=== PATIENT | male | born 1970 | race Caucasian/White ===

== ENCOUNTER → 2017-07-20 | Outpatient (CLI) | payer OTHER ==
[2017-07-20 12:59] LABS: CHOLESTEROL/HDL RATIO 3.8
== END | disposition home or self-care (01) ==
LOC: C.LABBFT 10:35
PROVIDERS: ATTEND Physician Assistant Medical
DX: Z00.00 Encounter for general adult medical examination without abnormal findings (principal)

== ENCOUNTER → 2017-07-22 | Outpatient (CLI) | payer OTHER ==
[2017-07-23 06:06] LABS: ESTIMATED AVERAGE GLUCOSE 108 mg/dl; HA1C FLAG Normal (Normal)
== END | disposition home or self-care (01) ==
LOC: C.LABBFT 11:18
PROVIDERS: ATTEND Physician Assistant Medical
DX: R73.09 Other abnormal glucose (principal)

== ENCOUNTER → 2017-10-19 | Day surgery (SDC) | payer OTHER ==
[2017-10-05 15:32] VITALS: Ht 175.3 cm; Wt 118.2 kg
[~2017-10-19] VITALS: Ht 175.3 cm; Wt 118.2 kg
[~2017-10-19] MED LIST: ATROPINE SULFATE 0.1 MG/ML 5ML SYR IV PRN; EpHEDrine SULFATE INJ 50 MG/ML AMP IV PRN; LIDOCAINE HCL 2% 2 ML VIAL (20MG/ML) ONE; MIDAZOLAM HCL 1 MG/ML 2ML VIAL ONE; PROPOFOL IV EMULSION 10 MG/ML 20 ML VIAL IV ONE; SODIUM CHLORIDE 0.9% 500ML 500 ML IV ONE
--- NOTE | 2017-10-19 10:57 | Endo History and Physical ---
History & Physical Date of Service: Oct 19, 2017. Chief Complaint: Hx of colon polyps Referring Physician: Dr Nielsen History of Present Illness 47 yo CM who presents for colonoscopy secondary to history of colon polyps. Past Surgical History Hx Cardiac Surgery: No Hx Internal Defibrillator: No Hx Pacemaker: No Hx Abdominal Surgery: Yes (APPY) Hx of Implantable Prosthesis: No Hx Post-Op Nausea and Vomiting: No Hx Cancer Surgery: No Hx Thoracic Surgery: No Hx Orthopedic: No Hx Urinary Tract Surgery: No Family History None Social History Smoking Status: Never Smoker Hx Substance Use: No Hx Alcohol Use: No Allergies Coded Allergies: No Known Allergies (Verified , 10/05/17) Current Medications Reported Home Medications Medications Dose Route/Sig Max Daily Dose Days Date Category No Active Prescriptions or Reported Medications Rx Vital Signs Weight (Kilograms): 118.18 Height (Feet): 5 Height (Inches): 9 Date Time Temp Pulse Resp B/P (MAP) Pulse Ox O2 Delivery O2 Flow Rate FiO2 10/19/17 10:27 36.8 68 20 122/85 (97) 96 Room Air Physical Exam General Appearance: WD/WN, no apparent distress Respiratory/Chest: Auscultation: breath sounds normal Cardiovascular: Heart Auscultation: RRR Abdomen: Bowel Sounds: normal Inspection & Palpation: soft, non-distended, no tenderness, guarding & rebound Assessment and Plan Assessment: 47 yo CM who presents for colonoscopy secondary to history of colon polyps. Plan: Proceed with colonoscopy.
--- NOTE | 2017-10-19 11:25 | GI REPORT ---
Procedure Date: 10/19/2017 11:00 AM Procedure: Colonoscopy Indications: High risk colon cancer surveillance: Personal history of colonic polyps Medicines: Monitored Anesthesia Care Complications: No immediate complications. Estimated Blood Loss: Estimated blood loss: none. Procedure: Pre-Anesthesia Assessment: - Prior to the procedure, a History and Physical was performed, and patient medications and allergies were reviewed. The patient's tolerance of previous anesthesia was also reviewed. The risks and benefits of the procedure and the sedation options and risks were discussed with the patient. All questions were answered, and informed consent was obtained. Prior Anticoagulants: The patient has taken no previous anticoagulant or antiplatelet agents. ASA Grade Assessment: II - A patient with mild systemic disease. After reviewing the risks and benefits, the patient was deemed in satisfactory condition to undergo the procedure. After I obtained informed consent, the scope was passed under direct vision. Throughout the procedure, the patient's blood pressure, pulse, and oxygen saturations were monitored continuously. The scope was introduced through the anus and advanced to the terminal ileum. The colonoscopy was performed without difficulty. The patient tolerated the procedure well. The quality of the bowel preparation was good. The terminal ileum, ileocecal valve, appendiceal orifice, and rectum were photographed. Findings: A 5 mm polyp was found in the ascending colon. The polyp was sessile. The polyp was removed with a hot snare. Resection and retrieval were complete. Non-bleeding internal hemorrhoids were found during retroflexion. The hemorrhoids were small. Impression: - One 5 mm polyp in the ascending colon, removed with a hot snare. Resected and retrieved. - Non-bleeding internal hemorrhoids. Recommendation: - Resume previous diet. - Continue present medications. - Repeat colonoscopy for surveillance based on pathology results. - Return to primary care physician as previously scheduled. Francis Moore DO 10/19/2017 11:24:34 AM This report has been signed electronically. Note Initiated On: 10/19/2017 11:00 AM I attest to the content of the Intraoperative Record and orders documented therein, exceptions below
--- NOTE | 2017-10-19 11:26 | Anesthesiology Progress Note ---
Anesthesia Post Op Note Date & Time Oct 19, 2017 at 11:26 Vital Signs Vital Signs Past 12 Hours Date Time Temp Pulse Resp B/P (MAP) Pulse Ox O2 Delivery O2 Flow Rate FiO2 10/19/17 10:27 36.8 68 20 122/85 (97) 96 Room Air Notes Mental Status: alert / awake / arousable, participated in evaluation Pt Amnestic to Procedure: Yes Nausea / Vomiting: adequately controlled Pain: adequately controlled Airway Patency, RR, SpO2: stable & adequate BP & HR: stable & adequate Hydration State: stable & adequate Anesthetic Complications: no major complications apparent
--- NOTE | 2017-10-19 11:27 | Discharge Instructions ---
Endoscopy Patient Instructions Date / Procedure(s) Performed Oct 19, 2017. Colonoscopy Allergy Information Coded Allergies: No Known Allergies (Verified , 10/05/17) Discharge Date / Findings Oct 19, 2017. Colon polyp Internal hemorrhoids Medication Instructions OK to resume all medications today as prescribed Reported Home Medications Medications Dose Route/Sig Max Daily Dose Days Date Category No Active Prescriptions or Reported Medications Rx Provider Instructions Activity Restrictions - No exercising or heavy lifting for 24 hours. - Do not drink alcohol the day of the procedure. - Do not drive a car or operate machinery until the day after the procedure. - Do not make any important decisions or sign important papers in 24 hours after the procedure. Following Day: - Return to full activity which may include returning to work/school. Diet Start your diet with liquids and light foods (jello, soup, juice, toast). Then eat your usual diet if not nauseated. Treatment For Common After Affects For mild abdominal pain, bloating, or excessive gas: - Rest - Eat lightly - Lie on right side Follow-Up Information Follow-up with Dr Nielsen as scheduled Anesthesia Information What You Should Know You have had a procedure that required some medicine to reduce anxiety and discomfort. This treatment is called moderate sedation. After receiving the treatment, you may be sleepy, but you will be able to breathe on your own. The effects of the treatment may last for several hours. Follow these instructions along with Activity/Diet recommendations noted above: * Do NOT do anything where dizziness or clumsiness would be dangerous. * Rest quietly at home today, then you can be up and about tomorrow. * Have a responsible person stay with you the rest of today. * You may have had an I.V. today. If so, you may take the dressing off later today. Recommendations Call your doctor if: * Trouble breathing * Continuous vomiting for more than 24 hours * Temperature above 101 degrees * Severe abdominal pain or bloating * Pain not relieved by pain medicine ordered * There is increased drainage or redness from any incision * A large amount of rectal bleeding greater than 2-3 tablespoons. (If you had a polyp/s removed or have hemorrhoids, a small amount of blood - from the rectum is to be expected.) * You have any unanswered questions or concerns. IN THE EVENT OF A SERIOUS EMERGENCY, GO TO THE NEAREST EMERGENCY ROOM Your discharge instructions were prepared by provider Francis Moore. Patient Instructions Signature Page Faizan Monroy Patient (or Guardian) Signature/Date: I have read and understand the instructions given to me by my caregivers. Caregiver/RN/Doctor Signature/Date: The above-named patient and/or guardian has received patient instructions on this date. + Original Patient Signature Page (only) stays with chart. Please make copy for patient.
[2017-10-19 11:55] VITALS: BP 124/85; PULSE 60; O2SAT 97
== END | disposition home or self-care (01) ==
LOC: C.GI 09:51
PROVIDERS: ATTEND Internal Medicine
DX: Z12.11 Encounter for screening for malignant neoplasm of colon (principal); D12.2 Benign neoplasm of ascending colon; K64.8 Other hemorrhoids; Z86.010 Personal history of colon polyps

== ENCOUNTER 2020-05-31 05:47 | Observation (INO) ==
[2020-05-31] MEDS ORDERED: SODIUM CHLORIDE 0.9% 1000ML 1,000 ML IV SCH (06:15)
[2020-05-31] MEDS ORDERED: OPTIRAY 320 125ml IV PRN (06:26)
[2020-05-31 06:38] LABS: Partial Thromboplastin Time 26.9 Seconds (21.0-31.0); Prothrombin Time 10.4 Seconds (9.0-12.0)
[2020-05-31 06:46] LABS: Albumin Level 3.6 gm/dl (3.4-5.0); BUN Creatinine Ratio 16.4 (10-20); Calcium 8.5 mg/dl (8.5-10.1); Creatinine Clr Calc Pharmacy 107.7 ml/min; Est GFR (African American) 92.2; Est GFR (Non-African American) 79.5; Potassium 3.6 mmol/L (3.5-5.1)
[2020-05-31 06:51] LABS: Albumin Globulin Ratio 1.1 (0.9-2); Bilirubin,Total 2.3 mg/dl (0.2-1); Globulin 3.3 gm/dl (2.5-4.0); Total Protein 6.9 gm/dl (6.4-8.2); Troponin I 0.33 ng/ml (0-0.045)
--- NOTE | 2020-05-31 06:52 | CT Scan Report ---
CT angio head wo/w, CT angio neck with con HISTORY: 49 years-old Male stroke acute strokelike symptoms COMPARISON: None TECHNIQUE: CTA of the head and neck was obtained both with and without the use of a moderate 18 mL Op tiray 320 IV contrast. 3-D coronal and sagittal MIPS were obtained from the axial data set and were s ubmitted for review. All measurements were obtained according to NASCET criteria. A dose lowering debo hnique was used consistent with the principals of [place]. FINDINGS: CT HEAD: There is a probable arachnoid cyst noted in the superior aspect of the quadrigeminal plate cistern ca uses mild mass effect upon the third ventricle. This measures approximately 3.8 cm in greatest dimens ion. No acute intracranial hemorrhage, midline shift, hydrocephalus or intra-axial mass. Amato-white i nterface is well-maintained. No evidence of acute or subacute territorial infarct. No acute calvarial fracture. Mastoid air cells and middle ear cavities are clear. The paranasal sinuses are also clear. Soft tissues and orbits are unremarkable. CTA HEAD AND NECK: No abnormal intracranial enhancement. Cerebral venous sinuses appear patent. The imaged opacified pul monary artery is unremarkable. Three-vessel morphology of the aortic arch. Patency of the imaged bila teral subclavian arteries and innominate artery. The common carotid arteries are widely patent. Mild mixed plaque of the carotid bulbs without significant stenosis. Mild tortuosity of the cervical segme nts of the internal carotid arteries. Mild calcified plaque of the supraclinoid segments. The middle and anterior cerebral arteries are patent and unremarkable. Mild luminal narrowing involves the dista l A1 segments bilaterally. The A2 segments are patent and unremarkable. The vertebral arteries are co dominant and appear widely patent. No aneurysm, dissection, high-grade stenosis or proximal branch oc clusion. The basilar and posterior cerebral arteries are patent. There is mild multifocal luminal joselin rowing of the bilateral posterior cerebral arteries. Lung apices are clear without pneumothorax. There is a 2.4 x 0.9 cm prominent right peritracheal lymp h node which is nonspecific. Soft tissues are unremarkable. Mild polypoid mucosal thickening of the a nterior wall right maxillary sinus. IMPRESSION: 1. No acute intracranial abnormality. 2. No aneurysm, dissection, high-grade stenosis or proximal branch occlusion. ACT 112: Negative or not required by law. The above report was generated using voice recognition software. It may contain grammatical, syntax o r spelling errors. Electronically signed by: Cody Ackerman M.D. 05/31/2020 6:51 AM
[2020-05-31 07:11] LABS: Hematocrit (blood only) 33.3 % (42-52); Hemoglobin 11.2 g/dL (14.0-18.0); Mean Corpuscular Hgb Conc 33.6 g/dL (32-36); Mean Corpuscular Volume 92.2 fL (80-100); Mean Platelet Volume 8.7 fL (7.4-10.4); Nucleated RBC # (auto) 0.03 K/uL (0-0); Nucleated RBC % (auto) 0.6 %; Platelet Count 15 K/uL (130-400); Platelet Estimate SIGNIFIC DECREASED (Normal); RDW Coefficient of Variation 15.3 % (11.5-14.5); RDW Standard Deviation 49.4 fL (36.4-46.3); Red Blood Count 3.61 M/uL (4.7-6.1); White Blood Count 5.51 K/uL (4.8-10.8)
--- NOTE | 2020-05-31 07:27 | XRay Report ---
XR chest 1V portable CLINICAL HISTORY: cva mental status change COMPARISON STUDY: 04/22/2013 FINDINGS: The bones soft tissues and hemidiaphragms are normal. The cardiomediastinal silhouette is n ormal. The lungs are clear. The pulmonary vasculature is normal. IMPRESSION: Negative chest. ACT 112: Negative or not required by law. The above report was generated using voice recognition software. It may contain grammatical, syntax or spelling errors. Electronically signed by: Chu Cannon M.D. 05/31/2020 7:25 AM
[2020-05-31] MEDS ORDERED: LABETALOL HCL IV 5 MG/ML 20ML IV STA (07:28)
[2020-05-31 07:39] LABS: Eosinophils # (auto) 0.16 K/uL (0-0.5); Eosinophils % (auto) 2.9 %; Immature Granulocytes % (auto) 1.8 %; Lymphocytes # (auto) 1.43 K/uL (1.2-3.4); Monocytes # (auto) 0.46 K/uL (0.11-0.59); Monocytes % (auto) 8.3 %; Neutrophils # (auto) 3.36 K/uL (1.4-6.5)
[2020-05-31 08:09] LABS: Polychromasia 1+; Schistocytes Occasional
--- NOTE | 2020-05-31 08:44 | History & Physical Report ---
Date of Service May 31, 2020 Assessment & Plan (1) Stroke-like symptoms: Faizan Monroy is a 49y/o M w/ PMH significant for sleep apnea; who presented to the ED for concerns of facial weakness and numbness and tingling in right arm. Stroke-like symptoms: -Symptoms resolved during care in ED -CTA head/neck: No acute intracranial abnormality, no aneurysm, no dissection, no high-grade stenosis or proximal branch occlusion, probable arachnoid cyst -MRI brain: No acute intracranial abnormality -Lipid profile in a.m., A1c in a.m. 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 daily for 4 days -Globulins pending -SPEP pending Diet: Heart healthy DVT ppx: held at this time Code: Full code (2) Thrombocytopenia: History of Present Illness Primary Care Provider: Anupam Nielsen MD Faizan Monroy is a 49y/o M w/ PMH reviewed for obstructive sleep apnea; to the emergency department following concern for recurrence of right arm/hand weakness numbness and tingling, with new onset facial numbness tingling and slurring of speech. This resolved prior to mission, and has not recurred. Patient did not receive TPA, following the discovery of low platelets on CBC. Over the last several days patient has noticed bruising of his left ankle, but does not remember any trauma to his left ankle or other injuries. Denies fever, shortness of breath, easy bleeding, chest pain, nausea, vomiting, abdominal pain, changes to urination, changes to bowel movements. Social: Denies tobacco, admits to 1-2 drinks every 2 to 3 months, denies recreational or illicit drug use Family: Denies history of lung cancer, Allergies Allergy/AdvReac Type Severity Reaction Status Date / Time No Known Allergies Allergy Unknown Verified 05/31/20 06:39 Home Medications Home Medications Medication Instructions Recorded Confirmed Type No Known Home Medications 05/31/20 05/31/20 History Past Med/Surg History Social History Preferred Language: Mongolian Communication Ability: Effective Oracle Fusion Consultant Required: No Beliefs That Will Affect Care: None Current Living Situation: Parent and Family Current Living Situation Comment: Parents and sons Other Information That Helps Us Care for You: No Feels Safe at Home: Yes Safety Concerns: Feels Safe At This Time Smoking Status: Never smoker Second Hand Exposure: No ; Hx Alcohol Use: Yes Alcohol type: beer and hard liquor Hx Substance Use: No Review of Systems Review of Systems: All systems reviewed & are unremarkable except as noted in Subjective Physical Exam Constitutional: WD/WN, vitals as above Eyes: PERRL, conjunctivae normal, anicteric sclerae Respiratory: normal respiratory effort, lungs clear to auscultation Cardiovascular: Rate/Rhythm: regular rate and regular rhythm Heart Sounds: normal S1 and normal S2; no gallop, no murmur and no cardiac rub Vessels: no JVD Extremities: no pedal edema Gastrointestinal (Abdomen): normal bowel sounds, soft, nontender, no hepatosplenomegaly Musculoskeletal: no cyanosis or clubbing, extremities motor strength 5/5 Skin: no rashes, warm and dry Neurologic: patellar DTR's 2+ bilat, sensation intact CN's II-XI intact bilaterally Psychiatric: A+Ox3, euthymic affect Results & Data Results & Data ([facility]) Vital Signs (Past 12 Hours) Vital Signs Temp Pulse Pulse Resp BP BP Pulse Ox 05/31/20 08:12 67 18 134/92 96 05/31/20 07:30 66 18 134/93 96 05/31/20 07:07 76 20 177/112 H 99 05/31/20 06:46 70 18 98 05/31/20 06:45 71 19 153/98 H 98 05/31/20 06:40 70 12 155/106 H 97 05/31/20 06:35 73 16 149/106 H 99 05/31/20 06:31 75 14 99 05/31/20 06:30 76 22 150/93 H 99 05/31/20 06:29 70 16 145/99 H 97 05/31/20 06:08 153/107 H 97 05/31/20 05:51 36.7 C 71 18 147/98 H 97 Laboratory Results 05/31/20 05/31/20 05/31/20 Range/Units 12:31 12:31 12:31 WBC (4.8-10.8) K/uL RBC (4.7-6.1) M/uL Hgb (14.0-18.0) g/dL Hct (42-52) % MCV (80-100) fL MCH (25-34) pg MCHC (32-36) g/dL RDW Std Deviation (36.4-46.3) fL RDW Coeff of Sarah (11.5-14.5) % Plt Count (130-400) K/uL MPV (7.4-10.4) fL Immature Gran % (Auto) % Neut % (Auto) % Lymph % (Auto) % Crook % (Auto) % Eos % (Auto) % Baso % (Auto) % Reticulocyte % (Auto) (0.5-2.0) % Neut # (Auto) (1.4-6.5) K/uL Lymph # (Auto) (1.2-3.4) K/uL Crook # (Auto) (0.11-0.59) K/uL Eos # (Auto) (0-0.5) K/uL Baso # (Auto) (0-0.2) K/uL Reticulocyte # (0.02-0.10) 10^6/uL Immature Gran # (Auto) (0.00-0.02) K/uL Absolute Nucleated RBC (0-0) K/uL Nucleated RBC % (auto) % Platelet Estimate (Normal) Polychromasia Schistocytes PT (9.0-12.0) Seconds INR (0.9-1.1) APTT (21.0-31.0) Seconds PTT Ratio Sodium (136-145) mmol/L Potassium (3.5-5.1) mmol/L Chloride (98-107) mmol/L Carbon Dioxide (21-32) mmol/L Anion Gap (3-11) BUN (7-18) mg/dl Creatinine (0.6-1.4) mg/dl Est Cr Clr Drug Dosing ml/min Est GFR ( Amer) Est GFR (Non-Af Amer) BUN/Creatinine Ratio (10-20) Glucose (70-99) mg/dl POC Glucose (70-99) mg/dl Calcium (8.5-10.1) mg/dl Magnesium (1.8-2.4) mg/dl Iron Pending TIBC Pending Transferrin Pending Ferritin Pending Total Bilirubin (0.2-1) mg/dl AST (15-37) U/L ALT (12-78) U/L Alkaline Phosphatase (45-117) U/L Troponin I (0-0.045) ng/ml Total Protein (6.4-8.2) gm/dl Total Protein (PEP) Pending Albumin (3.4-5.0) gm/dl Albumin (PEP) Pending Globulin (2.5-4.0) gm/dl Albumin/Globulin Ratio (0.9-2) Fvsbg-9-Ubyyvzfzf Pending Yzqlf-4-Oltzqrspm Pending Mwyi-9-Blxjarhx Pending Vsvi-2-Nyzukvtd Pending Gamma Globulins Pending Monoclonal Peak 3 Pending Ser Monoclonl Protein Pending Ser Monoclonal Prot 2 Pending PEP Interpretation Pending Vitamin B12 Pending Folate Pending Anaplasma Smear 05/31/20 05/31/20 05/31/20 Range/Units 12:31 12:00 10:36 WBC 5.45 (4.8-10.8) K/uL RBC 3.48 L (4.7-6.1) M/uL Hgb 10.8 L (14.0-18.0) g/dL Hct 31.5 L (42-52) % MCV 90.5 (80-100) fL MCH 31.0 (25-34) pg MCHC 34.3 (32-36) g/dL RDW Std Deviation 47.9 H (36.4-46.3) fL RDW Coeff of Sarah 15.3 H (11.5-14.5) % Plt Count 14 L* (130-400) K/uL MPV 9.2 (7.4-10.4) fL Immature Gran % (Auto) 1.1 % Neut % (Auto) 59.2 % Lymph % (Auto) 29.5 % Crook % (Auto) 7.2 % Eos % (Auto) 2.8 % Baso % (Auto) 0.2 % Reticulocyte % (Auto) 6.5 H (0.5-2.0) % Neut # (Auto) 3.23 (1.4-6.5) K/uL Lymph # (Auto) 1.61 (1.2-3.4) K/uL Crook # (Auto) 0.39 (0.11-0.59) K/uL Eos # (Auto) 0.15 (0-0.5) K/uL Baso # (Auto) 0.01 (0-0.2) K/uL Reticulocyte # 0.23 H (0.02-0.10) 10^6/uL Immature Gran # (Auto) 0.06 H (0.00-0.02) K/uL Absolute Nucleated RBC 0.05 H (0-0) K/uL Nucleated RBC % (auto) 0.8 % Platelet Estimate (Normal) Polychromasia 1+ Schistocytes 1+ PT (9.0-12.0) Seconds INR (0.9-1.1) APTT (21.0-31.0) Seconds PTT Ratio Sodium (136-145) mmol/L Potassium (3.5-5.1) mmol/L Chloride (98-107) mmol/L Carbon Dioxide (21-32) mmol/L Anion Gap (3-11) BUN (7-18) mg/dl Creatinine (0.6-1.4) mg/dl Est Cr Clr Drug Dosing ml/min Est GFR ( Amer) Est GFR (Non-Af Amer) BUN/Creatinine Ratio (10-20) Glucose (70-99) mg/dl POC Glucose (70-99) mg/dl Calcium (8.5-10.1) mg/dl Magnesium (1.8-2.4) mg/dl Iron TIBC Transferrin Ferritin Total Bilirubin (0.2-1) mg/dl AST (15-37) U/L ALT (12-78) U/L Alkaline Phosphatase (45-117) U/L Troponin I 0.459 H* (0-0.045) ng/ml Total Protein (6.4-8.2) gm/dl Total Protein (PEP) Albumin (3.4-5.0) gm/dl Albumin (PEP) Globulin (2.5-4.0) gm/dl Albumin/Globulin Ratio (0.9-2) Deruk-3-Rhncxsqza Lrgqj-5-Jyfqyebls Agng-8-Gotxeroq Prac-5-Eawwoixv Gamma Globulins Monoclonal Peak 3 Ser Monoclonl Protein Ser Monoclonal Prot 2 PEP Interpretation Vitamin B12 Folate Anaplasma Smear 05/31/20 05/31/20 05/31/20 Range/Units 06:27 06:05 06:05 WBC (4.8-10.8) K/uL RBC (4.7-6.1) M/uL Hgb (14.0-18.0) g/dL Hct (42-52) % MCV (80-100) fL MCH (25-34) pg MCHC (32-36) g/dL RDW Std Deviation (36.4-46.3) fL RDW Coeff of Sarah (11.5-14.5) % Plt Count (130-400) K/uL MPV (7.4-10.4) fL Immature Gran % (Auto) % Neut % (Auto) % Lymph % (Auto) % Crook % (Auto) % Eos % (Auto) % Baso % (Auto) % Reticulocyte % (Auto) (0.5-2.0) % Neut # (Auto) (1.4-6.5) K/uL Lymph # (Auto) (1.2-3.4) K/uL Crook # (Auto) (0.11-0.59) K/uL Eos # (Auto) (0-0.5) K/uL Baso # (Auto) (0-0.2) K/uL Reticulocyte # (0.02-0.10) 10^6/uL Immature Gran # (Auto) (0.00-0.02) K/uL Absolute Nucleated RBC (0-0) K/uL Nucleated RBC % (auto) % Platelet Estimate (Normal) Polychromasia Schistocytes PT 10.4 (9.0-12.0) Seconds INR 1.0 (0.9-1.1) APTT 26.9 (21.0-31.0) Seconds PTT Ratio 1.0 Sodium 140 (136-145) mmol/L Potassium 3.6 (3.5-5.1) mmol/L Chloride 109 H (98-107) mmol/L Carbon Dioxide 25 (21-32) mmol/L Anion Gap 6.0 (3-11) BUN 18 (7-18) mg/dl Creatinine 1.10 (0.6-1.4) mg/dl Est Cr Clr Drug Dosing 107.7 ml/min Est GFR ( Amer) 92.2 Est GFR (Non-Af Amer) 79.5 BUN/Creatinine Ratio 16.4 (10-20) Glucose 115 H (70-99) mg/dl POC Glucose 119 H (70-99) mg/dl Calcium 8.5 (8.5-10.1) mg/dl Magnesium 2.0 (1.8-2.4) mg/dl Iron TIBC Transferrin Ferritin Total Bilirubin 2.3 H (0.2-1) mg/dl AST 45 H (15-37) U/L ALT 86 H (12-78) U/L Alkaline Phosphatase 63 (45-117) U/L Troponin I 0.330 H* (0-0.045) ng/ml Total Protein 6.9 (6.4-8.2) gm/dl Total Protein (PEP) Albumin 3.6 (3.4-5.0) gm/dl Albumin (PEP) Globulin 3.3 (2.5-4.0) gm/dl Albumin/Globulin Ratio 1.1 (0.9-2) Quvqx-4-Zlurjqhyn Zeysl-3-Tqpzehmzq Mjit-8-Nzndxlpj Mral-9-Zxrxotrr Gamma Globulins Monoclonal Peak 3 Ser Monoclonl Protein Ser Monoclonal Prot 2 PEP Interpretation Vitamin B12 Folate Anaplasma Smear 05/31/20 Range/Units 06:05 WBC 5.51 (4.8-10.8) K/uL RBC 3.61 L (4.7-6.1) M/uL Hgb 11.2 L (14.0-18.0) g/dL Hct 33.3 L (42-52) % MCV 92.2 (80-100) fL MCH 31.0 (25-34) pg MCHC 33.6 (32-36) g/dL RDW Std Deviation 49.4 H (36.4-46.3) fL RDW Coeff of Sarah 15.3 H (11.5-14.5) % Plt Count 15 L* (130-400) K/uL MPV 8.7 (7.4-10.4) fL Immature Gran % (Auto) 1.8 % Neut % (Auto) 61.0 % Lymph % (Auto) 26.0 % Crook % (Auto) 8.3 % Eos % (Auto) 2.9 % Baso % (Auto) 0.0 % Reticulocyte % (Auto) (0.5-2.0) % Neut # (Auto) 3.36 (1.4-6.5) K/uL Lymph # (Auto) 1.43 (1.2-3.4) K/uL Crook # (Auto) 0.46 (0.11-0.59) K/uL Eos # (Auto) 0.16 (0-0.5) K/uL Baso # (Auto) 0.00 (0-0.2) K/uL Reticulocyte # (0.02-0.10) 10^6/uL Immature Gran # (Auto) 0.10 H (0.00-0.02) K/uL Absolute Nucleated RBC 0.03 H (0-0) K/uL Nucleated RBC % (auto) 0.6 % Platelet Estimate SIGNIFIC DECREASED (Normal) Polychromasia 1+ Schistocytes Occasional PT (9.0-12.0) Seconds INR (0.9-1.1) APTT (21.0-31.0) Seconds PTT Ratio Sodium (136-145) mmol/L Potassium (3.5-5.1) mmol/L Chloride (98-107) mmol/L Carbon Dioxide (21-32) mmol/L Anion Gap (3-11) BUN (7-18) mg/dl Creatinine (0.6-1.4) mg/dl Est Cr Clr Drug Dosing ml/min Est GFR ( Amer) Est GFR (Non-Af Amer) BUN/Creatinine Ratio (10-20) Glucose (70-99) mg/dl POC Glucose (70-99) mg/dl Calcium (8.5-10.1) mg/dl Magnesium (1.8-2.4) mg/dl Iron TIBC Transferrin Ferritin Total Bilirubin (0.2-1) mg/dl AST (15-37) U/L ALT (12-78) U/L Alkaline Phosphatase (45-117) U/L Troponin I (0-0.045) ng/ml Total Protein (6.4-8.2) gm/dl Total Protein (PEP) Albumin (3.4-5.0) gm/dl Albumin (PEP) Globulin (2.5-4.0) gm/dl Albumin/Globulin Ratio (0.9-2) Iyjcc-9-Xrudphqba Oykfr-4-Jnrhrgqvh Rgak-8-Ylqsklwj Pokc-9-Rfnvnciz Gamma Globulins Monoclonal Peak 3 Ser Monoclonl Protein Ser Monoclonal Prot 2 PEP Interpretation Vitamin B12 Folate Anaplasma Smear See Comment Medications Administered Current Inpatient Medications Acetaminophen (Tylenol) 650 mg PO Q4H PRN PRN Reason: pain/fever Stop: 06/30/20 09:37 Al Hydrox/Mg Hydrox/Simethicone (Maalox) 30 ml PO Q6H PRN PRN Reason: Dyspepsia Stop: 06/30/20 09:37 Immune Globulin (Flebogamma 10%) 200 mls @ 0 mls/hr IV Q1H NÉSTOR; Protocol Stop: 05/31/20 20:01 Immune Globulin (Flebogamma 10%) 100 mls @ 76 mls/hr IV TODAY@1330 NÉSTOR; Protocol Stop: 05/31/20 21:00 Immune Globulin (Flebogamma 10%) 100 mls @ 76 mls/hr IV TODAY@1100 NÉSTOR; Protocol Stop: 06/01/20 21:00 Immune Globulin (Flebogamma 10%) 200 mls @ 0 mls/hr IV Q1H NÉSTOR; Protocol Stop: 06/01/20 18:01 Magnesium Hydroxide (Milk Of Magnesia) 30 ml PO Q6H PRN PRN Reason: Constipation Stop: 06/30/20 09:37 Ondansetron HCl (Zofran) 4 mg IV Q6H PRN PRN Reason: Nausea Stop: 06/30/20 09:37 Polyethylene Glycol (Miralax Powder Packet) 17 gm PO DAILY PRN PRN Reason: Constipation Stop: 06/30/20 09:37 Supervising Physician Co-Signing Physician Notes I personally examined the patient and verified all iqbal points of history and exam, discussed case, and agree with decision making with Dr Delgadillo. feeling ok at the time i see him. neuro sx have all resolved. updated extensively and answered all questions to the best of my ability. vitals ntoed nad heent nc at mmm breathing unlabored no accessory muscles good effort skin no rashes no pallor or icterus neuro no focal deficits. ITP - IVIG 1g/kg x2 days per heme onc, if platelets rise then home w outpt f/u; if not then decadron. follow anemia - iron studies, b12, folate, retic and SPEP sent. follow aphasia/neuro sx - dr delgadillo found in the literature where pt's can get transient neuro sx as part of ITP - so quite possible this is what caused it, but given male, age, BMI -- certainly deserves stroke w/u and any subsequent secondary risk reduction that might come of it. can't use asa due to thrombocytopenia. DVT proph - pharmacologic contraindicated due to thrombocytopenia. mechanical of dubious benefit. not overtly high risk. Resident Activity Tracking Resident Involvement: Resident Care Provided Care Provided: Adult Hospital Medicine
[2020-05-31] MEDS ORDERED: POLYETHYLENE (MIRALAX) 17 GM PACK PO PRN (09:38)
[2020-05-31] MEDS ORDERED: ONDANSETRON INJ 2 MG/ML 2 ML VIAL IV PRN (09:38)
[2020-05-31] MEDS ORDERED: ALUMINUM/MAGNESIUM SUSP 30 ML UDC PO PRN (09:38)
[2020-05-31] MEDS ORDERED: ACETAMINOPHEN 325 MG TAB PO PRN (09:38)
[2020-05-31] MEDS ORDERED: MAGNESIUM HYDROXIDE SUSP 30 ML UDC PO PRN (09:38)
[2020-05-31 10:55] LABS: Hematocrit (blood only) 31.5 % (42-52); Hemoglobin 10.8 g/dL (14.0-18.0); Mean Corpuscular Hgb Conc 34.3 g/dL (32-36); Mean Corpuscular Volume 90.5 fL (80-100); Mean Platelet Volume 9.2 fL (7.4-10.4); Nucleated RBC # (auto) 0.05 K/uL (0-0); Nucleated RBC % (auto) 0.8 %; Platelet Count 14 K/uL (130-400); RDW Coefficient of Variation 15.3 % (11.5-14.5); RDW Standard Deviation 47.9 fL (36.4-46.3); Red Blood Count 3.48 M/uL (4.7-6.1); White Blood Count 5.45 K/uL (4.8-10.8)
[2020-05-31] MEDS ORDERED: IMMUNE GLOBULIN IV SCH (12:30)
[2020-05-31 12:50] LABS: Basophils # (auto) 0.01 K/uL (0-0.2); Basophils % (auto) 0.2 %; Eosinophils # (auto) 0.15 K/uL (0-0.5); Eosinophils % (auto) 2.8 %; Immature Granulocytes # (auto) 0.06 K/uL (0.00-0.02); Immature Granulocytes % (auto) 1.1 %; Lymphocytes # (auto) 1.61 K/uL (1.2-3.4); Lymphocytes % (auto) 29.5 %; Monocytes # (auto) 0.39 K/uL (0.11-0.59); Monocytes % (auto) 7.2 %; Neutrophils # (auto) 3.23 K/uL (1.4-6.5); Neutrophils % (auto) 59.2 %; Polychromasia 1+; Schistocytes 1+
[2020-05-31 12:58] LABS: Reticulocyte % 6.5 % (0.5-2.0); Reticulocytes # 0.23 10^6/uL (0.02-0.10)
--- NOTE | 2020-05-31 13:03 | Consultation Report ---
DATE OF CONSULTATION: 05/31/2020 REASON FOR CONSULTATION: Thrombocytopenia, suspect immune-mediated thrombocytopenia. HISTORY OF PRESENT ILLNESS: Mr. Monroy is a very pleasant 49-year-old gentleman who presented through the Emergency Room this morning complaining of right-sided facial weakness, slurred speech and right upper extremity weakness. Appropriately, he underwent a CTA of the head and neck, which revealed a 2.4 x 0.5 prominent right paratracheal lymph node, which is nonspecific, but no evidence of intracerebral bleeding or thromboses. Chest x-ray was also performed and found to be negative. A battery of laboratories including peripheral blood counts were obtained revealing a mild normocytic normochromic anemia and severe thrombocytopenia with platelet count of 14,000. This gentleman has no prior history of hematologic malignancy or ITP. He has a very few health issues otherwise with the exception of gastroesophageal reflux disease and hypertension. Mr. Monroy reports scattered bruising and also reports a small amount of blood extracted from his penis during urination within the last 24 hours. I was consulted through the hospitalist service to investigate this gentleman's decrease in platelets. PAST MEDICAL HISTORY: Again, significant for gastroesophageal reflux disease and hypertension. PAST SURGICAL HISTORY: Negative. MEDICATIONS: No current prescription meds. ALLERGIES: No known allergies. 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 He is a nonsmoker and casual alcohol consumer. FAMILY HISTORY: Noncontributory. REVIEW OF SYSTEMS: Most notably for right-sided weakness involving his face and upper extremity. He also notes scattered ecchymosis. CONSTITUTIONAL: Negative for fevers, chills or sweats. He is not presently anorexic and reports no significant weight loss. SKIN: No rashes or lesions. No history of dermatoses. HEENT: No visual or hearing deficits. No sinus symptoms, sore throat or dysphagia. LYMPHATICS: No history of lymphoproliferative disease. CARDIAC: No history of coronary artery disease, no angina or palpitations. PULMONARY: No history of COPD. No shortness of breath, dyspnea or orthopnea. No cough or hemoptysis. GASTROINTESTINAL: Negative for abdominal pain, nausea, vomiting, diarrhea or constipation. GENITOURINARY: Again, he reports and describes microhematuria perhaps. No dysuria or urinary incontinence. MUSCULOSKELETAL: No arthralgias or myalgias. No muscle weakness. ENDOCRINE: He claims to be prediabetic. Negative for thyroid disease. NEUROLOGIC: Negative for seizure, stroke, or migraine headache. HEMATOLOGIC: As per HPI. PHYSICAL EXAMINATION: GENERAL: A very pleasant morbidly obese 49-year-old gentleman in no acute distress. VITAL SIGNS: Temperature 36.5, pulse 65, respiratory rate 16, blood pressure 144/81. SKIN: Warm, dry, noncyanotic without petechia or rash. There are few scattered ecchymoses noted. HEENT: Head is atraumatic, normocephalic. Eyes: PERRLA, EOMI. Sclerae nonicteric. No conjunctival injection. Nares are patent without rhinorrhea or discharge. Throat clear. Tongue midline. No evidence of palatal petechiae. NECK: Bull neck. Supple. HEART: Regular rate and rhythm. No clicks, rubs, murmurs or gallops. LUNGS: Clear to auscultation bilaterally. ABDOMEN: Soft, nontender, nondistended, without palpable hepatosplenomegaly. EXTREMITIES: No clubbing, cyanosis or edema. MUSCULOSKELETAL: Strength is equal in all 4 quadrants. NEUROLOGICAL: He is awake, alert and oriented x3. Cranial nerves II-XII are grossly intact. LABORATORY DATA: WBC count 5450, hemoglobin 10.8, platelet count 14,000. His coags are within normal limits. Sodium 140, potassium 3.6, chloride 109, carbon dioxide 25, BUN 18, creatinine 1.10, total bilirubin mildly elevated at 2.3, AST 45, ALT 86. IMPRESSION: 1. Right-sided weakness, rule out transient ischemic attack. 2. 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 3. Normocytic normochromic anemia, etiology unclear. 4. Elevated liver transaminases. 5. Hyperbilirubinemia. PLAN: I was requested to evaluate Mr. Monroy for subacute-onset drop in platelets. This gentleman presented with right-sided weakness involving his face and upper extremity. Fortunately, the neurologic symptoms have resolved. There was no radiographic evidence to date of TIA or CVA. Laboratories done during admission incidentally noted a mild normocytic normochromic anemia and thrombocytopenia. Unfortunately, this gentleman has no baseline platelet counts to reference, and based on his history and current clinical presentation, an immune-mediated drop in platelets is suspected. His renal function is intact and his coags are intact essentially ruling out a consumptive coagulopathy. Cannot readily explain his jump in bilirubin or liver transaminases, but do not believe there is a relationship with his cytopenias. Thus, I have requested the hospitalist to empirically treat him with intravenous immunoglobulin 1 gram per kilogram today and tomorrow. If platelets fail to rise, we then consider dexamethasone 40 mg p.o. daily x4 days. The downside of the ladder is his prediabetic status and blood sugar issues that would be effected. He also has a subtle normocytic normochromic anemia. I have asked the hospitalist to order a full anemia panel including reticulocyte count too. This gentleman also imparted some blood from his urethra, which despite low platelets should be investigated by urology as an outpatient. I will be educational adviser over the weekend and can be contacted if there are any problems. Please make sure peripheral counts are ordered daily. I will establish outpatient followup upon discharge. Thank you very much for allowing me to participate in his care. If you have questions or concerns, feel free to contact me at any time. DEDE
[2020-05-31 13:17] LABS: Ferritin 657.3 ng/ml (8-388)
[2020-05-31 13:29] LABS: Folate (Folic Acid) 6.12 ng/ml (>5.38)
[2020-05-31] MEDS ORDERED: IMMUNE GLOBULIN(HUMAN) 10% 100 ML IV SCH ×2 (13:30→14:30)
[2020-05-31] MEDS ORDERED: GADOBUTROL 65ML VIAL IV PRN (14:30)
--- NOTE | 2020-05-31 14:59 | Magnetic Resonance Report ---
MRI OF THE BRAIN COMBO CLINICAL HISTORY: Strokelike symptoms. COMPARISON STUDY: CT of the brain performed the same day 05/31/2020. TECHNIQUE: MRI of the brain was performed utilizing various T1 and T2-weighted sequences in the axial , sagittal, and coronal planes. Contrast-enhanced sequences were acquired following the administratio n of 12.5 cc of Gadavist. FINDINGS: Brain parenchyma: The brain parenchyma is normal in appearance. There is no hemorrhage or midline yue ft. There is no restricted diffusion to suggest acute ischemia. No enhancing mass lesion is identifie d on the postcontrast images. Amato-white matter differentiation is preserved. No extra-axial fluid co llection is seen. A tiny capillary telangiectasia is incidentally noted in the jose alfredo. A 3 cm arachnoid cyst is incidentally noted along the quadrigeminal plate cistern. The cerebellar tonsils are normal in configuration. Ventricles, sulci, and cisterns: Normal in configuration. Pituitary and sella: Unremarkable. Intracranial vasculature: Normal flow voids are maintained at the skull base. Orbits: The bony orbits are grossly intact. Orbital contents are normal in appearance. Sinuses and mastoids: There is a 13 mm retention cyst in the right maxillary antrum. The paranasal si nuses are otherwise clear. The mastoid air cells are well pneumatized. Calvarium: Unremarkable. Cervical cord: Partially visualized cervical spinal cord is normal in morphology and signal intensity . IMPRESSION: No acute intracranial abnormality. ACT 112: Negative or not required by law. Electronically signed by: Leno Hannon M.D. 05/31/2020 2:58 PM
[2020-05-31] MEDS ORDERED: IMMUNE GLOBULIN(HUMAN) 10% 200 ML IV SCH (15:00)
[2020-05-31] MEDS: IMMUNE GLOBULIN(HUMAN) 10% 200 ML IV SCH ×5 (16:24→23:35)
[2020-05-31] MEDS ORDERED: HydrALAZINE HCL 20 MG/ML VIAL IV PRN (18:37)
--- NOTE | 2020-05-31 19:45 | Billing Data ---
Date of Service May 31, 2020 Coding Level of Care Code 31613 Initial Inpt Care Lvl 3
--- NOTE | 2020-06-01 07:12 | Electrocardiogram Report ---
Test Reason : Blood Pressure : / mmHG Vent. Rate : 068 BPM Atrial Rate : 068 BPM P-R Int : 160 ms QRS Dur : 106 ms QT Int : 394 ms P-R-T Axes : 004 028 001 degrees QTc Int : 418 ms Normal sinus rhythm Inferior infarct , age undetermined Abnormal ECG When compared with ECG of 30-APR-2011 21:17, No significant change was found Confirmed by Linwood Ye ([id number]) on 06/01/2020 7:12:02 AM Referred By: REFERRED SELF Confirmed By:Linwood Ye
[2020-06-01 07:42] LABS: Estimated Average Glucose 91 mg/dl; Hemoglobin A1C 4.8 % (4.5-5.6)
[2020-06-01 08:10] LABS: BUN Creatinine Ratio 14.8 (10-20); Calcium 8.4 mg/dl (8.5-10.1); Creatinine Clr Calc Pharmacy 97.1 ml/min; Est GFR (African American) 81.3; Est GFR (Non-African American) 70.2; Potassium 3.8 mmol/L (3.5-5.1)
[2020-06-01 08:11] LABS: Hematocrit (blood only) 31.4 % (42-52); Hemoglobin 10.5 g/dL (14.0-18.0); Mean Corpuscular Hemoglobin 30.6 pg (25-34); Mean Corpuscular Hgb Conc 33.4 g/dL (32-36); Mean Corpuscular Volume 91.5 fL (80-100); Mean Platelet Volume 9.2 fL (7.4-10.4); Nucleated RBC # (auto) 0.06 K/uL (0-0); Platelet Count 11 K/uL (130-400); RDW Coefficient of Variation 15.5 % (11.5-14.5); RDW Standard Deviation 49.7 fL (36.4-46.3); Red Blood Count 3.43 M/uL (4.7-6.1); White Blood Count 6.48 K/uL (4.8-10.8)
[2020-06-01 08:12] LABS: Basophils # (auto) 0.01 K/uL (0-0.2); Basophils % (auto) 0.2 %; Eosinophils % (auto) 3.1 %; Immature Granulocytes % (auto) 1.5 %; Lymphocytes # (auto) 1.16 K/uL (1.2-3.4); Lymphocytes % (auto) 17.9 %; Monocytes # (auto) 0.49 K/uL (0.11-0.59); Monocytes % (auto) 7.6 %; Neutrophils # (auto) 4.52 K/uL (1.4-6.5); Neutrophils % (auto) 69.7 %; Schistocytes Occasional
--- NOTE | 2020-06-01 08:28 | Hospitalist Progress Note ---
Date of Service June 01, 2020 Assessment & Plan (1) Stroke-like symptoms: Faizan Monroy is a 49y/o M w/ PMH significant for sleep apnea; who presented to the ED for concerns of facial weakness and numbness and tingling in right arm. Stroke-like symptoms: -Symptoms resolved during care in ED --Repeat of similar symptoms of slurred speech, R facial droop, R hand numbness/tingling, difficulty word finding again today at 12:00PM to 12:40PM. Symptoms again resolved entirely. Patient noted that this event felt similar, but was "less intense" as his initial presenting symptoms. -CTA head/neck: No acute intracranial abnormality, no aneurysm, no dissection, no high-grade stenosis or proximal branch occlusion, probable arachnoid cyst -MRI brain: No acute intracranial abnormality -Head CTA w/o contrast today during event was negative for acute hemorrhage. -Lipid profile normal, A1c 4.8% -Echo ordered - pending read. -Etiology of symptoms is still unknown at this time, though high suspicion in concert with patients profound thrombocytopenia -Stroke/TIA - while plausible with patients age, risk factors lower suspicion with normal A1c, lipids, multiple scans negative -Aseptic Meningitis - negative Kernigs and Brudzinski sign, no fever or other symptoms suggestive of current infection -Hypertensive disease - patient has been fairly well controlled, during event today BP was normal with systolic in the 120-130's -MS/ALS - no focal findings on MRI -Vasospasm - possible at this time, though still fairly uncertain. If events occur again can consider Amlodipine 2.5mg to help prevent episodes -Will likely curbside if not consult Neurology in the AM, especially if symptoms recur overnight. -Will monitor patient closely at this time. Thrombocytopenia: -Patient noticed bruising of left ankle over the last week, no recent bleeding -Platelets 15 on admission, recheck during day 14. Currently platelets at 11, plan for repeat CBC in the AM. 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 daily for 4 days -Patient s/p 1 day IVIG therapy, will complete another course today and plan for PO Dexamethasone tomorrow if again no improvement. -Globulins pending -SPEP pending Diet: Heart healthy DVT ppx: held at this time Code: Full code (2) Thrombocytopenia: Admission and Anticipated Discharge Date Admission Date: May 31, 2020 Supervising Physician Co-Signing Physician Notes I personally examined the patient and verified all iqbal points of history and exam, discussed case, and agree with decision making with Dr Lees. R facial droop and difficulty with words - assessed by dr lees and myself - sent straight to CT - negative. sx later resolved. vitals noted. R face not moving symmetrically. difficulty getting words out. motor appearing overall intact otherwise. breathing unlabored no accessory muscles. no gross bruising/petechiae ITP - IVIG 1g/kg x2 days per heme onc, if platelets rise then home w outpt f/u; if not then decadron. plt today 11. anemia - iron studies, b12 (low - will start w PO replacement and if doesn't improve then IM - but with plt so low would want to hold off on IM if possible to avoid hematoma), folate, retic and SPEP sent. follow aphasia/neuro sx - echo pending but otherwise stroke/TIA w/u essentially nil. on/off sx concerning but quickly resolve. fortunately no bleed. serial exams. suspect does relate to ITP. see Dr Lees's extensive discussions as above - we discussed ddx/causes/treatments extensively. further, w plt 11 even if it eliel eared cerebrovascular, tPA would be contraindicated. DVT proph - pharmacologic contraindicated due to thrombocytopenia. mechanical of dubious benefit. not overtly high risk. Subjective Patient seen in the AM at the bedside. Patient states that he was "feeling much better than yesterday" and that he was no longer having any problems or symptoms of his R sided facial droop, slurred speech, or R handed weakness and numbness/tingling. He also denied any headache, fever, chills, SOB, chest pain. He felt that he may bruise easily, but could not recall any specific incidents other than the inside of his R ankle. He has no other complaints at this time. UPDATE: Around 12PM nursing paged the special education bus driver resident noting that the patient was currently having symptoms of R sided facial droop and slurred speech. Upon my arrival to the room, patient did indeed have a mild R sided facial droop and slurred speech. He was having some difficult with word finding, but was able to state his name and location. He also noted some tingling in his R hand. Patient was immediately evaluated and sent to CT scan for a non-contrast CT for concerns of a bleed with patients thrombocytopenia. CT scan was negative for bleed at this time. Patients symptoms rapidly resolved by 12:40PM and on reevaluation had good recollection of the event. Upon reevaluation again later in the evening of 4:30PM, patients symptoms had been entirely resolved since 12:40PM and he had no facial droop, slurred speech, difficulty word finding, numbness/tingling in his R hand, or weakness. He noted that he was again, feeling well. Review of Systems Review of Systems: All systems reviewed & are unremarkable except as noted in Subjective Physical Exam Constitutional: WD/WN, vitals as above Eyes: PERRL, conjunctivae normal, anicteric sclerae ENMT: external ear and nose normal, oropharynx normal Neck: trachea midline, no thyromegaly Respiratory: normal respiratory effort, lungs clear to auscultation Cardiovascular: Rate/Rhythm: regular rate and regular rhythm Heart Sounds: normal S1 and normal S2; no gallop, no murmur and no cardiac rub Gastrointestinal (Abdomen): normal bowel sounds, soft, nontender, no hepatosplenomegaly Musculoskeletal: no cyanosis or clubbing, extremities motor strength 5/5 Skin: no rashes, warm and dry Neurologic: patellar DTR's 2+ bilat, sensation intact CN's II-XI intact bilaterally Psychiatric: A+Ox3, euthymic affect Results & Data Results & Data ([facility]) Vital Signs (Past 12 Hours) Vital Signs Temp Pulse Pulse Resp BP Pulse Ox 06/01/20 08:12 37.2 C 71 18 132/80 98 06/01/20 07:52 83 05/31/20 23:21 36.8 C 80 18 107/69 97 Resident Activity Tracking Resident Involvement: Resident Care Provided Care Provided: Adult Hospital Medicine
[2020-06-01] MEDS ORDERED: IMMUNE GLOBULIN(HUMAN) 10% 100 ML IV SCH ×2 (11:00→14:00)
--- NOTE | 2020-06-01 12:26 | CT Scan Report ---
CT SCAN OF THE BRAIN WITHOUT IV CONTRAST CLINICAL HISTORY: Right-sided facial droop. Slurred speech COMPARISON STUDY: CT and MRI of the brain dated 05/31/2020. TECHNIQUE: Unenhanced axial CT scan of the brain is performed from the vertex to the skull base. A d ose lowering technique was utilized adhering to the principles of ALARA. CT DOSE: 569.73 mGy.cm FINDINGS: Brain parenchyma: The brain parenchyma is normal in appearance. There is no hemorrhage, mass effect, or evidence of acute territorial ischemia by CT criteria. A small arachnoid cyst is again seen along the quadrigeminal plate cistern. Amato-white matter differentiation is preserved. No extra-axial fluid collection is seen. Ventricles, sulci, cisterns: Normal in configuration. Intracranial vasculature: There is mild atherosclerotic calcification of the cavernous carotid arteri es. Calvarium: Unremarkable. Sinuses and mastoids: The visualized paranasal sinuses are clear. The mastoid air cells are well pneu matized. Orbits: The bony orbits are grossly intact. IMPRESSION: There is no hemorrhage, mass effect, or evidence of acute territorial ischemia by CT ript charlene. No change from yesterday. ACT 112: Negative or not required by law. Electronically signed by: Leno Hannon M.D. 06/01/2020 12:24 PM
[2020-06-01] MEDS ORDERED: IMMUNE GLOBULIN(HUMAN) 10% 200 ML IV SCH (13:00)
[2020-06-01] MEDS: IMMUNE GLOBULIN(HUMAN) 10% 200 ML IV SCH ×4 (14:56→19:45)
--- NOTE | 2020-06-01 15:29 | Emergency Department Note ---
History of Present Illness General Chief complaint: Neuro Symptoms/Deficit Stated complaint: NUMBNESS IN FACE AND RT ARM Time Seen by Provider: 05/31/20 06:01 Source: patient, EMS and RN notes reviewed Mode of arrival: EMS Limitations: no limitations History of Present Illness Provider complaint: stroke like symptoms Maximum Pain Intensity: 5 This patient is a 49-year-old male who presents emergency department with complaints of right arm weakness and ataxia that he noticed at approximately 530 this morning. Patient states he woke up at 515 and was well. Patient states his speech was slurred and he noticed some mild right-sided facial droop as well. He denies a history of similar. He denies any recent illnesses, headache, vomiting, chest pain, shortness of breath or fevers. 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 He does not smoke cigarettes. Home Medications Home Medications Medication Instructions Recorded Confirmed Type No Known Home Medications 05/31/20 05/31/20 History Allergies Allergy/AdvReac Type Severity Reaction Status Date / Time No Known Allergies Allergy Unknown Verified 05/31/20 06:39 Past Med/Surg History Medical History GERD (gastroesophageal reflux disease) Internal hemorrhoids Sleep apnea BiPAP Surgical History History of appendectomy History of colonoscopy History of tooth extraction Family History Mother Family history of diabetes mellitus Father Family history of diabetes mellitus Denies family history of Ovarian cancer Prostate cancer Myocardial infarction Breast cancer Colorectal cancer Social History Preferred Language: Occitan Communication Ability: Effective Hangar Attendant Required: No Beliefs That Will Affect Care: None Current Living Situation: Parent and Family Current Living Situation Comment: Parents and sons Other Information That Helps Us Care for You: No Feels Safe at Home: Yes Safety Concerns: Feels Safe At This Time Smoking Status: Never smoker Second Hand Exposure: No ; Hx Alcohol Use: Yes Alcohol type: beer and hard liquor Hx Substance Use: No Review of Systems See HPI for pertinent positives & negatives. and A total of 10 systems reviewed and were otherwise negative Physical Exam Vital signs reviewed. General: Well-appearing 49-year-old man, in no significant distress. HEENT: No scleral icterus, PERRLA, neck supple. Atraumatic. Cardiovascular: Regular rate and rhythm, no extra sounds. Pulmonary: Clear to auscultation bilaterally, normal work of breathing. Abdomen: Soft, nontender, nondistended, positive bowel sounds. Musculoskeletal: Atraumatic, no peripheral edema. Neurologic: Patient awake alert and oriented x 3. Patient does have a slight speech slur, right nasolabial fold flattening. Eyebrows are even, there is no tongue deviation. No significant ataxia noted to either upper extremity. Equal strength in all 4 extremities. Skin: Warm, dry, no rash Course Administered Medications Acetaminophen (Tylenol) 650 mg PO Q4H PRN PRN Reason: pain/fever Stop: 06/30/20 09:37 Last Admin: 06/01/20 03:59 Dose: 650 mg Documented by: [id number] Gadobutrol (Gadavist 65ml) 12.5 ml IV ONCE PRN PRN Reason: Interaction Checking Stop: 06/04/20 14:29 Last Admin: 05/31/20 14:31 Dose: 12.5 ml Documented by: [id number] Ondansetron HCl (Zofran) 4 mg IV Q6H PRN PRN Reason: Nausea Stop: 06/30/20 09:37 Last Admin: 06/01/20 03:59 Dose: 4 mg Documented by: [id number] Discontinued Medications Sodium Chloride (Nss 1000ml) 1,000 mls @ 50 mls/hr IV .Q20H [facility] Stop: 06/30/20 06:14 Last Infusion: 05/31/20 15:54 Dose: 0 mls/hr Documented by: [id number] Infusion: 05/31/20 09:15 Dose: 0 mls/hr Documented by: [id number] Admin: 05/31/20 06:36 Dose: 50 mls/hr Documented by: [id number] Immune Globulin (Flebogamma 10%) 100 mls @ 76 mls/hr IV TODAY@1430 [facility]; Protocol Stop: 05/31/20 22:00 Last Infusion: 05/31/20 16:23 Dose: 0 mls/hr Documented by: [id number] Admin: 05/31/20 15:28 Dose: 76 mls/hr Documented by: [id number] Immune Globulin (Flebogamma 10%) 200 mls @ 76 mls/hr IV Q2H [facility]; Protocol Stop: 05/31/20 23:59 Last Infusion: 06/01/20 03:13 Dose: 0 mls/hr Documented by: [id number] Admin: 05/31/20 23:35 Dose: 76 mls/hr Documented by: [id number] Infusion: 05/31/20 23:28 Dose: 76 mls/hr Documented by: [id number] Admin: 05/31/20 20:50 Dose: 76 mls/hr Documented by: [id number] Infusion: 05/31/20 20:41 Dose: 76 mls/hr Documented by: [id number] Admin: 05/31/20 18:03 Dose: 76 mls/hr Documented by: [id number] Infusion: 05/31/20 18:02 Dose: 150 mls/hr Documented by: [id number] Infusion: 05/31/20 17:50 Dose: 150 mls/hr Documented by: [id number] Infusion: 05/31/20 16:53 Dose: 125 mls/hr Documented by: [id number] Admin: 05/31/20 16:24 Dose: 76 mls/hr Documented by: [id number] Immune Globulin (Flebogamma 10%) 100 mls @ 76 mls/hr IV TODAY@1400 [facility]; Protocol Stop: 06/01/20 23:00 Last Infusion: 06/01/20 15:11 Dose: 0 mls/hr Documented by: [id number] Admin: 06/01/20 13:52 Dose: 76 mls/hr Documented by: [id number] Immune Globulin (Flebogamma 10%) 200 mls @ 76 mls/hr IV Q2H [facility]; Protocol Stop: 06/01/20 22:59 Last Infusion: 06/01/20 21:05 Dose: 0 mls/hr Documented by: [id number] Admin: 06/01/20 19:45 Dose: 150 mls/hr Documented by: [id number] Infusion: 06/01/20 19:42 Dose: 150 mls/hr Documented by: [id number] Admin: 06/01/20 18:22 Dose: 150 mls/hr Documented by: [id number] Infusion: 06/01/20 18:21 Dose: 0 mls/hr Documented by: [id number] Admin: 06/01/20 17:01 Dose: 150 mls/hr Documented by: [id number] Infusion: 06/01/20 17:01 Dose: 76 mls/hr Documented by: [id number] Admin: 06/01/20 14:56 Dose: 76 mls/hr Documented by: [id number] Ioversol (Optiray 320 125ml) 125 ml IV ONCE PRN PRN Reason: Interaction Checking Stop: 06/04/20 06:25 Last Admin: 05/31/20 06:26 Dose: 118 ml Documented by: [id number] Labetalol HCl (Normodyne) 5 mg IV NOW STA Stop: 05/31/20 07:29 Last Admin: 05/31/20 09:11 Dose: Not Given Documented by: [id number] Medical Decision Making Differential Diagnosis Differential includes acute coronary syndrome, myocardial infarction, CVA, TIA, anemia, infection, pneumonia, UTI, pyelonephritis, poor nutrition, dehydration, electrolyte disturbance,hypoglycemia. Medical Records Attestation: I reviewed the patient's medical records. Laboratory Data Attestation: I reviewed the patient's lab results. Result diagrams: 06/01/20 07:21 06/01/20 07:21 Lab Results 05/31/20 05/31/20 05/31/20 Range/Units 06:05 06:05 06:05 WBC 5.51 (4.8-10.8) K/uL RBC 3.61 L (4.7-6.1) M/uL Hgb 11.2 L (14.0-18.0) g/dL Hct 33.3 L (42-52) % MCV 92.2 (80-100) fL MCH 31.0 (25-34) pg MCHC 33.6 (32-36) g/dL RDW Std Deviation 49.4 H (36.4-46.3) fL RDW Coeff of Sarah 15.3 H (11.5-14.5) % Plt Count 15 L* (130-400) K/uL MPV 8.7 (7.4-10.4) fL Immature Gran % (Auto) 1.8 % Neut % (Auto) 61.0 % Lymph % (Auto) 26.0 % Mason % (Auto) 8.3 % Eos % (Auto) 2.9 % Baso % (Auto) 0.0 % Neut # (Auto) 3.36 (1.4-6.5) K/uL Lymph # (Auto) 1.43 (1.2-3.4) K/uL Mason # (Auto) 0.46 (0.11-0.59) K/uL Eos # (Auto) 0.16 (0-0.5) K/uL Baso # (Auto) 0.00 (0-0.2) K/uL Immature Gran # (Auto) 0.10 H (0.00-0.02) K/uL Absolute Nucleated RBC 0.03 H (0-0) K/uL Nucleated RBC % (auto) 0.6 % Platelet Estimate SIGNIFIC DECREASED (Normal) Polychromasia 1+ Schistocytes Occasional PT 10.4 (9.0-12.0) Seconds INR 1.0 (0.9-1.1) APTT 26.9 (21.0-31.0) Seconds PTT Ratio 1.0 Sodium 140 (136-145) mmol/L Potassium 3.6 (3.5-5.1) mmol/L Chloride 109 H (98-107) mmol/L Carbon Dioxide 25 (21-32) mmol/L Anion Gap 6.0 (3-11) BUN 18 (7-18) mg/dl Creatinine 1.10 (0.6-1.4) mg/dl Est Cr Clr Drug Dosing 107.7 ml/min Est GFR ( Amer) 92.2 Est GFR (Non-Af Amer) 79.5 BUN/Creatinine Ratio 16.4 (10-20) Glucose 115 H (70-99) mg/dl POC Glucose (70-99) mg/dl Calcium 8.5 (8.5-10.1) mg/dl Magnesium 2.0 (1.8-2.4) mg/dl Total Bilirubin 2.3 H (0.2-1) mg/dl AST 45 H (15-37) U/L ALT 86 H (12-78) U/L Alkaline Phosphatase 63 (45-117) U/L Troponin I 0.330 H* (0-0.045) ng/ml Total Protein 6.9 (6.4-8.2) gm/dl Albumin 3.6 (3.4-5.0) gm/dl Globulin 3.3 (2.5-4.0) gm/dl Albumin/Globulin Ratio 1.1 (0.9-2) Anaplasma Smear See Comment 05/31/20 Range/Units 06:27 WBC (4.8-10.8) K/uL RBC (4.7-6.1) M/uL Hgb (14.0-18.0) g/dL Hct (42-52) % MCV (80-100) fL MCH (25-34) pg MCHC (32-36) g/dL RDW Std Deviation (36.4-46.3) fL RDW Coeff of Sarah (11.5-14.5) % Plt Count (130-400) K/uL MPV (7.4-10.4) fL Immature Gran % (Auto) % Neut % (Auto) % Lymph % (Auto) % Mason % (Auto) % Eos % (Auto) % Baso % (Auto) % Neut # (Auto) (1.4-6.5) K/uL Lymph # (Auto) (1.2-3.4) K/uL Mason # (Auto) (0.11-0.59) K/uL Eos # (Auto) (0-0.5) K/uL Baso # (Auto) (0-0.2) K/uL Immature Gran # (Auto) (0.00-0.02) K/uL Absolute Nucleated RBC (0-0) K/uL Nucleated RBC % (auto) % Platelet Estimate (Normal) Polychromasia Schistocytes PT (9.0-12.0) Seconds INR (0.9-1.1) APTT (21.0-31.0) Seconds PTT Ratio Sodium (136-145) mmol/L Potassium (3.5-5.1) mmol/L Chloride (98-107) mmol/L Carbon Dioxide (21-32) mmol/L Anion Gap (3-11) BUN (7-18) mg/dl Creatinine (0.6-1.4) mg/dl Est Cr Clr Drug Dosing ml/min Est GFR ( Amer) Est GFR (Non-Af Amer) BUN/Creatinine Ratio (10-20) Glucose (70-99) mg/dl POC Glucose 119 H (70-99) mg/dl Calcium (8.5-10.1) mg/dl Magnesium (1.8-2.4) mg/dl Total Bilirubin (0.2-1) mg/dl AST (15-37) U/L ALT (12-78) U/L Alkaline Phosphatase (45-117) U/L Troponin I (0-0.045) ng/ml Total Protein (6.4-8.2) gm/dl Albumin (3.4-5.0) gm/dl Globulin (2.5-4.0) gm/dl Albumin/Globulin Ratio (0.9-2) Anaplasma Smear Imaging Data Radiologist's Impression: XR chest 1V portable CLINICAL HISTORY: cva mental status change COMPARISON STUDY: 04/22/2013 FINDINGS: The bones soft tissues and hemidiaphragms are normal. The cardiomediastinal silhouette is normal. The lungs are clear. The pulmonary vasculature is normal. IMPRESSION: Negative chest. ACT 112: Negative or not required by law. The above report was generated using voice recognition software. It may contain grammatical, syntax or spelling errors. Electronically signed by: Chu Cannon M.D. 05/31/2020 7:25 AM Dictated: 05/31/20723 Transcribed: 05/31/20723 ADDENDUM IMPRESSION 3. Probable arachnoid cyst of the superior aspect of the quadrigeminal plate cistern, 3.8 cm. Electronically signed by: Cody Ackerman M.D. 05/31/2020 6:[address] angio head wo/w, CT angio neck with con HISTORY: 49 years-old Male stroke acute strokelike symptoms COMPARISON: None TECHNIQUE: CTA of the head and neck was obtained both with and without the use of a moderate 18 mL Optiray 320 IV contrast. 3-D coronal and sagittal MIPS were obtained from the axial data set and were submitted for review. All measurements were obtained according to NASCET criteria. A dose lowering technique was used consistent with the principals of [place]. FINDINGS: CT HEAD: There is a probable arachnoid cyst noted in the superior aspect of the quadrigeminal plate cistern causes mild mass effect upon the third ventricle. This measures approximately 3.8 cm in greatest dimension. No acute intracranial hemorrhage, midline shift, hydrocephalus or intra-axial mass. Amato-white interface is well-maintained. No evidence of acute or subacute territorial infarct. No acute calvarial fracture. Mastoid air cells and middle ear cavities are clear. The paranasal sinuses are also clear. Soft tissues and orbits are unremarkable. CTA HEAD AND NECK: No abnormal intracranial enhancement. Cerebral venous sinuses appear patent. The imaged opacified pulmonary artery is unremarkable. Three-vessel morphology of the aortic arch. Patency of the imaged bilateral subclavian arteries and innominate artery. The common carotid arteries are widely patent. Mild mixed plaque of the carotid bulbs without significant stenosis. Mild tortuosity of the cervical segments of the internal carotid arteries. Mild calcified plaque of the supraclinoid segments. The middle and anterior cerebral arteries are patent and unremarkable. Mild luminal narrowing involves the distal A1 segments bilater ally. The A2 segments are patent and unremarkable. The vertebral arteries are codominant and appear widely patent. No aneurysm, dissection, high-grade stenosis or proximal branch occlusion. The basilar and posterior cerebral arteries are patent. There is mild multifocal luminal narrowing of the bilateral posterior cerebral arteries. Lung apices are clear without pneumothorax. There is a 2.4 x 0.9 cm prominent right peritracheal lymph node which is nonspecific. Soft tissues are unremarkable. Mild polypoid mucosal thickening of the anterior wall right maxillary sinus. IMPRESSION: 1. No acute intracranial abnormality. 2. No aneurysm, dissection, high-grade stenosis or proximal branch occlusion. ACT 112: Negative or not required by law. The above report was generated using voice recognition software. It may contain grammatical, syntax or spelling errors. Electronically signed by: Cody Ackerman M.D. 05/31/2020 6:51 AM Dictated: 05/31/20639 Transcribed: 05/31/20639 ECG Data Attestation: I personally reviewed and interpreted this ECG as follows: Indication: + other (CVA symptoms) Rate (beats per minute): 68 Rhythm: + normal sinus ECG Intervals/blocks: + Normal QRS ECG [place]: + Normal ECG ST segments: + Normal ST segments and + T-wave inversions ECG Findings: no PACs and no PVCs Blood Pressure Blood Pressure Findings: Elevated blood pressure Blood Pressure Disposition: further management by hospitalist VALDO Álvarez This patient was evaluated and appeared to be in no significant distress. IV access was obtained and laboratory work was drawn. A stroke alert was called. An order for cardiac monitoring was placed and the patient is found to be in a normal sinus rhythm at 70 bpm. Patient was sent for CT/CTA of the head and neck which is negative for acute abnormality. Patient's symptoms seem to be improved upon his return. The stroke neurologist, Dr. Faulkner evaluated the patient over telehealth. She did initially recommend mixing the TPA but after examining him and realizing his improvement, she felt he would not likely benefit from TPA. Patient's laboratory work is significant for a thrombocytopenia of 15,000. Patient states he has no history of thrombocytopenia or recent illness. His troponin is noted to be 0.33. There are T wave inversions noted on his EKG however no ST elevation. Patient has no complaints of chest pain. Aspirin is contraindicated at this time. Patient's case was discussed with the hospitalist service who will evaluate the patient for further management. Impression & Plan Stroke-like symptoms, Thrombocytopenia Discharge Plan Visit Data *Final* Discharge Date/Time: 05/31/20 09:07 Chief Complaint: Neuro Symptoms/Deficit Stated Complaint: NUMBNESS IN FACE AND RT ARM ED Provider: Rylee London Discharge Problem: Stroke-like symptoms, Thrombocytopenia Patient Disposition: Admitted As Inpatient Discharge Instructions Interventions: ED Discharge Assessment Last Done: 05/31/20 09:07
--- NOTE | 2020-06-01 18:46 | Billing Data ---
Date of Service June 01, 2020 Coding Level of Care Code 19015 Subseq Hosp Care Lvl 3
--- NOTE | 2020-06-02 06:54 | Hospitalist Progress Note ---
Date of Service June 02, 2020 Assessment & Plan (1) Stroke-like symptoms: Faizan Monroy is a 49y/o M w/ PMH significant for sleep apnea; who presented to the ED for concerns of facial weakness and numbness and tingling in right arm. Stroke-like symptoms: -Symptoms resolved during care in ED --Repeat of similar symptoms of slurred speech, R facial droop, R hand numbness/tingling, difficulty word finding again on 06/01/20 at 12:00PM to 12:40PM. Symptoms again resolved entirely. Patient noted that this event felt similar, but was "less intense" as his initial presenting symptoms. -CTA head/neck: No acute intracranial abnormality, no aneurysm, no dissection, no high-grade stenosis or proximal branch occlusion, probable arachnoid cyst -MRI brain: No acute intracranial abnormality -Head CTA w/o contrast 06/01/20 during event was negative for acute hemorrhage. -Lipid profile normal, A1c 4.8% -TTE - No PFO noted, EF 65-70%, normal function -Etiology of symptoms is still unknown at this time, though high suspicion in concert with patients profound thrombocytopenia -Stroke/TIA - while plausible with patients age, risk factors lower suspicion with normal A1c, lipids, multiple scans negative -Aseptic Meningitis - negative Kernigs and Brudzinski sign, no fever or other symptoms suggestive of current infection -Hypertensive disease - patient has been fairly well controlled, during event today BP was normal with systolic in the 120-130's -MS/ALS - no focal findings on MRI -Vasospasm - possible at this time, though still fairly uncertain. If events occur again can consider Amlodipine 2.5mg to help prevent episodes -[facility] of [facility]-like events. Repeat LDH and Bilirubin in AM, Peripheral smear, Haptoglobin, CBC, [id number], Reticulocyte -Consider Neurology consult. -Will continue to monitor patient closely at this time. Thrombocytopenia: -Patient noticed bruising of left ankle over the last week, no recent bleeding -?ITP vs TTP -LDH 624, repeat in AM -Initial Bilirubin elevated at 2.3, repeat in AM with Direct/Indirect differentiation -Initial reticulocyte 0.23, repeat in AM -Platelets 15 on admission, recheck during day 14. Platelets have slightly improved to to 16 after 2 days of IVIG infusion -Will start PO Dexamethasone 40mg QD x 4 days. 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 daily for 4 days -Globulins pending -SPEP pending Diet: Heart healthy DVT ppx: held at this time Code: Full code (2) Thrombocytopenia: Admission and Anticipated Discharge Date Admission Date: May 31, 2020 Supervising Physician Co-Signing Physician Notes I personally examined the patient and verified all iqbal points of history and exam, discussed case, and agree with decision making with Dr Lees. R facial droop and difficulty with words - assessed by dr lees and myself - sent straight to CT - negative. sx later resolved. vitals noted. R face not moving symmetrically. difficulty getting words out. motor appearing overall intact otherwise. breathing unlabored no accessory muscles. no gross bruising/petechiae thrombocytopenia - see below- most c/w ITP but w neuro findings concern ??TTP -- repeat retic, peripheral smear, LDH and bili as well as CBC in AM; send-out labs as ordered by neuro, follow clinically. for presumed ITP had IVIG x2 days and now on decadron - but if TTP would likely need to transfer for plasmaphoresis. pt initially fairly unhappy about staying in hospital longer - d/w him frankly t hat he is able to make his own decisions and the absolute risk for permanent sequellae (stroke, ARF) are probably low percentage harrison - but should they occur it would be difficult to remedy particularly if he is not here and able to have immediate intervention - after discussions he is opting to stay. anemia - iron studies, b12 (low - giving PO replacement and if doesn't improve then IM - but with plt so low would want to hold off on IM if possible to avoid hematoma), folate, retic and SPEP sent. follow aphasia/neuro sx - nothing for evidence to suggest intracranial atherosclerosis, large vessel thromboembolic, or central embolic. after d/w hematology it would not be c/w ITP to have transient neuro sx - although TTP could - on review of smear they also noted small amount of schistocytes although not enough to be overtly clear that TTP was at play. otherwise for neuro deficits ddx of ?vasospasm -- see dr lees's discussions as little else seems likely. will ask neuro for opinion as well. DVT proph - pharmacologic contraindicated due to thrombocytopenia. mechanical of dubious benefit. not overtly high risk. Subjective Patient evaluated while standing in the room this AM. Patient notes that he feels well today and that he has not had any recurrence of his symptoms. He denies any further R arm/hand weakness/paresthesias, facial droop, slurred speech, memory loss. Has not noticed any overt bruising, rashes, or petechiae. Is showing interest in discharge today. Review of Systems Constitutional: no fever, no chills, no body aches, no fatigue and no weakness Difficulty sleeping secondary to not being able to use his own CPAP/BiPAP Eyes: no photophobia and no worsening vision Ear, Nose, Mouth, Throat: no tinnitus Respiratory: no cough, no dyspnea, no dyspnea on exertion and no pain on inspiration Cardiovascular: no chest pain, no radiating jaw, neck or arm pain, no dyspnea, no dyspnea on exertion, no palpitations and no syncope Additional Comments: Gastrointestinal: no abdominal pain, no nausea, no vomiting, no constipation and no diarrhea/loose stools Genitourinary: no dysuria Musculoskeletal: no muscle weakness Integumentary: no lesions, no new lesions and no unusual bruising Physical Exam Constitutional: WD/WN, vitals as above Eyes: PERRL, conjunctivae normal, anicteric sclerae ENMT: external ear and nose normal, oropharynx normal Neck: trachea midline, no thyromegaly Respiratory: normal respiratory effort, lungs clear to auscultation Cardiovascular: Rate/Rhythm: regular rate and regular rhythm Heart Sounds: normal S1 and normal S2; no gallop, no murmur and no cardiac rub Gastrointestinal (Abdomen): normal bowel sounds, soft, nontender, no hepatosplenomegaly Musculoskeletal: no cyanosis or clubbing, extremities motor strength 5/5 Skin: no rashes, warm and dry Neurologic: patellar DTR's 2+ bilat, sensation intact CN's II-XI intact b ilaterally, moves all extremities and awake; no meningeal signs, not confused and not obtunded Speech / Cognition: normal speech Motor/Sensory: normal movement Psychiatric: A+Ox3, euthymic affect Results & Data Results & Data ([facility]) Vital Signs (Past 12 Hours) Vital Signs Temp Pulse Pulse Resp BP Pulse Ox 06/02/20 04:32 36.9 C 78 18 139/94 97 06/01/20 23:20 36.4 C L 72 20 129/76 96 06/01/20 21:30 65 06/01/20 19:52 36.9 C 75 18 137/84 95 Resident Activity Tracking Resident Involvement: Resident Care Provided Care Provided: Adult Hospital Medicine
[2020-06-02 07:08] LABS: Mean Corpuscular Hgb Conc 33.1 g/dL (32-36); Nucleated RBC # (auto) 0.06 K/uL (0-0); Nucleated RBC % (auto) 1.2 %; Platelet Count 16 K/uL (130-400)
[2020-06-02 07:13] LABS: Hematocrit (blood only) 29.9 % (42-52); Hemoglobin 9.9 g/dL (14.0-18.0); Mean Corpuscular Hemoglobin 30.8 pg (25-34); Mean Corpuscular Volume 93.1 fL (80-100); RDW Coefficient of Variation 16.4 % (11.5-14.5); RDW Standard Deviation 53.3 fL (36.4-46.3); Red Blood Count 3.21 M/uL (4.7-6.1); White Blood Count 5.09 K/uL (4.8-10.8)
[2020-06-02 07:14] LABS: BUN Creatinine Ratio 12.6 (10-20); Calcium 8.2 mg/dl (8.5-10.1); Creatinine Clr Calc Pharmacy 102.1 ml/min; Est GFR (African American) 86.4; Est GFR (Non-African American) 74.6; Potassium 3.9 mmol/L (3.5-5.1)
[2020-06-02] MEDS: CYANOCOBALAMIN 500 MCG TABLET (VITAMIN B-12) PO SCH (08:00)
[2020-06-02 08:09] LABS: Basophils # (auto) 0.01 K/uL (0-0.2); Basophils % (auto) 0.2 %; Eosinophils # (auto) 0.13 K/uL (0-0.5); Eosinophils % (auto) 2.6 %; Immature Granulocytes # (auto) 0.08 K/uL (0.00-0.02); Immature Granulocytes % (auto) 1.6 %; Lymphocytes # (auto) 1.53 K/uL (1.2-3.4); Lymphocytes % (auto) 30.1 %; Monocytes # (auto) 0.36 K/uL (0.11-0.59); Monocytes % (auto) 7.1 %; Neutrophils # (auto) 2.98 K/uL (1.4-6.5); Neutrophils % (auto) 58.4 %; Schistocytes Occasional
[2020-06-02] MEDS: dexAMETHasone 4 MG TAB PO SCH (09:19)
--- NOTE | 2020-06-02 10:34 | Progress Notes ---
DATE: 06/02/2020 DIAGNOSES: 1. Suspected ITP. 2. Right-sided weakness, rule out transient ischemic attack. 3. Normocytic normochromic anemia, etiology unclear. 4. Elevated liver transaminases. SUBJECTIVE: The patient was seen and examined at bedside. Clearly, he seems to be doing better; however, apparently had a similar neurologic event last night. The hospitalists are aware of. This gentleman received 2 courses of 1 gram per kilogram IVIG. Platelet count did rise modestly to 16,000. High dose dexamethasone orally has been started. Reviewed peripheral smear this morning revealing a few schistocytes, but not to the degree I would suspect an underlying TTP. Nonetheless, his constellation of symptoms and hematologic findings are concerning. Nursing reports no overnight difficulties. OBJECTIVE: GENERAL: A very pleasant 49-year-old gentleman, awake, alert, appropriate, in no acute distress. VITAL SIGNS: Temperature 36.9, pulse 86, respiratory rate 18, blood pressure 137/89. SKIN: Without rash or lesion. HEENT: Oral mucosa without erythema or ulceration. HEART: Regular rate and rhythm. LUNGS: Clear to auscultation bilaterally. ABDOMEN: Soft, nontender, nondistended without palpable hepatosplenomegaly. EXTREMITIES: No calf tenderness or swelling. No clubbing, cyanosis or edema. NEUROLOGIC: The patient is grossly intact at bedside. LABORATORY DATA: WBC count 5090, hemoglobin 9.9, platelet count 16,000. There is a small amount of nucleated RBCs and a few schistocytes seen on peripheral smear. Sodium 137, potassium 3.9, chloride 108, carbon dioxide 26, creatinine 1.16, BUN 15. LDH 624. IMPRESSION: 1. Severe thrombocytopenia (immune thrombocytopenia). 2. Normocytic normochromic anemia. 3. Rule out transient ischemic attack. PLAN: The patient is a very interesting 49-year-old gentleman who was admitted a couple of days ago when he woke up with right-sided facial and upper extremity weakness. Symptoms have subsided shortly after onset. Apparently, had a similar event last night. He was empirically treated with IVIG and now has begun high dose dexamethasone on my instruction. This gentleman also has a concomitant anemia with generous reticulocytosis of 6.5%. We will check hemolysis parameters including LDH, haptoglobin and repeat reticulocyte count today as well as antibody screen. Again, I reviewed the peripheral smear which does not appear impressive, but nonetheless should be followed closely. Thrombotic thrombocytopenic purpura is a rare phenomenon, but certainly can be extensively ruled out. Generally the pentad of neurologic dysfunction, microangiopathic hemolytic anemia, fever, renal dysfunction and low platelets round out the pentad. We will ask the hospitalist to check [id number] as deficiency is confirmatory for TTP. The hospitalist's plan is to keep the patient under observation for the next 24-48 hours and I will consult with Dr. Madonna Beltre tomorrow morning to review the patient's smears. Thank you very much for allowing me to participate in his care and will keep you abreast of any findings.
--- NOTE | 2020-06-02 18:08 | Billing Data ---
Date of Service June 02, 2020 Coding Level of Care Code 34858 Subseq Hosp Care Lvl 3
[2020-06-03 06:57] LABS: Mean Corpuscular Hgb Conc 34.3 g/dL (32-36); Nucleated RBC # (auto) 0.13 K/uL (0-0); Platelet Count 22 K/uL (130-400)
[2020-06-03 06:58] LABS: Hematocrit (blood only) 28.6 % (42-52); Hemoglobin 9.8 g/dL (14.0-18.0); Mean Corpuscular Hemoglobin 31.3 pg (25-34); Mean Corpuscular Volume 91.4 fL (80-100); RDW Coefficient of Variation 16.7 % (11.5-14.5); RDW Standard Deviation 52.6 fL (36.4-46.3); Red Blood Count 3.13 M/uL (4.7-6.1); White Blood Count 13.09 K/uL (4.8-10.8)
[2020-06-03 07:07] LABS: Basophils # (auto) 0.01 K/uL (0-0.2); Basophils % (auto) 0.1 %; Eosinophils # (auto) 0.01 K/uL (0-0.5); Eosinophils % (auto) 0.1 %; Immature Granulocytes # (auto) 0.13 K/uL (0.00-0.02); Lymphocytes # (auto) 1.89 K/uL (1.2-3.4); Lymphocytes % (auto) 14.4 %; Monocytes # (auto) 0.66 K/uL (0.11-0.59); Neutrophils # (auto) 10.39 K/uL (1.4-6.5); Neutrophils % (auto) 79.4 %; Reticulocyte % 8.6 % (0.5-2.0); Reticulocytes # 0.27 10^6/uL (0.02-0.10)
[2020-06-03 07:10] LABS: Albumin Level 3.1 gm/dl (3.4-5.0); BUN Creatinine Ratio 13.3 (10-20); Bilirubin Direct 0.4 mg/dl (0-0.2); Calcium 8.3 mg/dl (8.5-10.1); Creatinine Clr Calc Pharmacy 103.9 ml/min; Est GFR (African American) 88.3; Est GFR (Non-African American) 76.2; Potassium 4.1 mmol/L (3.5-5.1)
[2020-06-03 07:13] LABS: Albumin Globulin Ratio 0.5 (0.9-2); Bilirubin,Total 1.9 mg/dl (0.2-1); Total Protein 9.1 gm/dl (6.4-8.2)
[2020-06-03 07:14] LABS: Schistocytes Occasional
--- NOTE | 2020-06-03 08:13 | Progress Notes ---
DATE: 06/03/2020 DIAGNOSES: 1. 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 2. Right-sided weakness, rule out transient ischemic attack. 3. Normocytic normochromic anemia, etiology unclear. 4. Elevated liver transaminases. SUBJECTIVE: The patient was seen and examined at bedside. The last 24 hours were uneventful according to Faizan. Nursing reports no overnight difficulties. The patient will receive day 2 high-dose dexamethasone after receiving 1 gram per kilogram IVIG on 2 consecutive days. Cautiously optimistic platelet count is heading in the right direction 22,000 at last count. His hemoglobin for the most part have stabilized. We will examine peripheral smear today. Again, I believe TTP is much less likely the diagnosis and will continue corticosteroids. OBJECTIVE: GENERAL: A very pleasant 49-year-old male in no acute distress. VITAL SIGNS: Temperature 36.5, pulse 73, respiratory rate 18, blood pressure 135/85. SKIN: Without rash or lesion. HEENT: Oral mucosa without erythema or ulceration. HEART: Regular rate and rhythm. LUNGS: Clear to auscultation bilaterally. ABDOMEN: Soft, nontender, nondistended. EXTREMITIES: No clubbing, cyanosis or edema. NEUROLOGICAL: Grossly intact. LABORATORY DATA: WBC count 13,090, hemoglobin 9.8, platelet count 22,000. Absolute neutrophil count 10,390. Sodium 139, potassium 4.1, chloride 109, carbon dioxide 24, creatinine 1.14, BUN 15, AST 39, ALT 67. Both are heading downward towards normal. LDH markedly elevated at 664, albumin 3.1. IMPRESSION: 1. Severe thrombocytopenia (immune thrombocytopenia). 2. Normocytic normochromic anemia. 3. Rule out transient ischemic attack. PLAN: The patient seems to be making headway in regard to his platelet count presently measuring 22,000. Again, the unexplained neurologic symptoms, mild hemolytic anemia; however, there is no renal insufficiency or fever present. Nonetheless, the entire pentad does not need to be manifested to make diagnosis of thrombotic thrombocytopenic purpura. Again, we will review peripheral smear with Dr. Beltre today and continue to follow him closely.
[2020-06-03] MEDS: dexAMETHasone 4 MG TAB PO SCH (08:42)
[2020-06-03] MEDS: CYANOCOBALAMIN 500 MCG TABLET (VITAMIN B-12) PO SCH (08:42)
--- NOTE | 2020-06-03 09:29 | Neurology Consultation ---
Date of Consultation June 03, 2020 Assessment & Plan (1) TIA (transient ischemic attack): Recurrent TIA localizing to the left cerebral hemisphere, left MCA territory occurring in the context of severe thrombocytopenia. No evidence of carotid stenosis or significant underlying cerebrovascular disease. No evidence of cardioembolic source. ITP has paradoxically been shown to associate with stroke and thromboembolic phenomena. Treatment with IVIG is also associated with an increased risk of thromboembolic complications. There is no clear consensus on ischemic stroke and TIA management in patients with severe thrombocytopenia. However, it is generally recommended to avoid aspirin and other antiplatelet treatments in individuals with platelet counts under 50,000. Also, there is no evidence of hemorrhage on any of his brain scans. His serum lipids are normal and he does not have evidence of cerebrovascular disease on imaging, I do not see a clear role for statin therapy in his case. I would avoid additional treatment with IVIG. He may need additional follow-up and possible treatment of labile hypertension. His blood pressure has been modestly elevated at times during this hospitalization. (2) Thrombocytopenia: Severe thrombocytopenia, moderately improved with IVIG and dexamethasone. Suspected immune thrombocytopenia, ITP. Hematology evaluation ongoing. As above, would avoid additional treatment with IVIG given the increased risk of thromboembolic phenomena. Consider lab evaluation for systemic lupus erythematosus, antiphospholipid syndrome, hepatitis C, and HIV. History of Present Illness Reason for Consultation: Recurrent TIA Requesting Physician: Jun Stone. Attending Physician: Jun Stone DO History of Present Illness The patient is a 49-year-old male who presented to the emergency department on May 31 with a chief complaint of an episode of right arm weakness, with associated right facial droop and slurred speech that began acutely, approximately 15 minutes after awakening that morning. His symptoms resolved during his initial assessment. He did have a tele-stroke consultation although TPA was not administered. CT/CT angiography of the head and neck were unrema rkable. He was found to have a significant thrombocytopenia. He had another very similar episode in the hospital the following day around noon. His MRI is negative for acute or subacute process. As echocardiogram and EKG did not suggest an obvious cardioembolic source. The patient does have a past medical history of obesity and obstructive sleep apnea but otherwise does not have any known chronic health conditions. He does not take any prescription medications. He does not abuse drugs or alcohol. 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 This morning, the patient indicates that he feels fine. No headache, vision disturbance, speech change, focal weakness or sensory loss. He has been ambulating freely in his hospital room. No dizziness, vertigo, or presyncopal symptoms. He does have some minimal bruising along the medial aspect of the left ankle. Patient has received IVIG and dexamethasone during this hospitalization and his platelet count has modestly improved. He has been seen by hematology, felt to probably have immune thrombocytopenia although work-up is ongoing. Allergies Allergy/AdvReac Type Severity Reaction Status Date / Time No Known Allergies Allergy Unknown Verified 05/31/20 06:39 Home Medications Home Medications Medication Instructions Recorded Confirmed Type No Known Home Medications 05/31/20 05/31/20 History Patient History Medical History GERD (gastroesophageal reflux disease) Internal hemorrhoids Sleep apnea BiPAP Surgical History History of appendectomy History of colonoscopy History of tooth extraction Family History Mother Family history of diabetes mellitus Father Family history of diabetes mellitus Denies family history of Ovarian cancer Prostate cancer Myocardial infarction Breast cancer Colorectal cancer Social History Preferred Language: Serbian Communication Ability: Effective Sap Basis Consultant Required: No Beliefs That Will Affect Care: None Current Living Situation: Parent and Family Current Living Situation Comment: Parents and sons Other Information That Helps Us Care for You: No Feels Safe at Home: Yes Safety Concerns: Feels Safe At This Time Smoking Status: Never smoker Second Hand Exposure: No ; Hx Alcohol Use: Yes Alcohol type: beer and hard liquor Hx Substance Use: No Review of Systems Constitutional: no fever, no chills and no fatigue Eyes: no blind spots and no diplopia Ear, Nose, Mouth, Throat: no tinnitus and no hearing loss Respiratory: no cough and no dyspnea Cardiovascular: no chest pain and no palpitations Gastrointestinal: no nausea and no vomiting Genitourinary: no dysuria and no urinary incontinence Musculoskeletal: no neck pain and no myalgia Integumentary: no rash and no lesions Neurologic: as per Subjective / HPI; no syncope, no headache(s), no confusion and no memory loss Psychiatric: no depression and no anxiety Hematologic / Lymphatic: as per Subjective / HPI and + easy bruising Exam (Neuro) Constitutional: well developed and well nourished; no acute distress Eyes: normal visual bassett by confrontation, PERRL, normal accommodation and EOM intact bilaterally; no fundoscopic abnormality, no nystagmus and no papilledema Cardiovascular: Vessels: normal carotid upstroke; no carotid bruit Neurologic: Oriented to:: Person, Place and Time Memory: Short Term Intact and Remote Intact Attention: Span Intact and Concentration Intact Language: Naming Objects and Repeating Phrases Speech Fluency: negative Dysarthria Speech Aphasia: negative Aphasia Fund of Knowledge: Current Events, Past History and Vocabulary Cranial Nerves: Normal II (Visual bassett full to confrontation, visual acuity normal), III, IV, (Pupils equal round reactive to light and accommodation, eye movements normal), V (Facial sensation intact), VII (There is no facial droop or weakness), VIII (Hearing intact), IX, X (Palate elevates to midline), XI (Shoulder shrug intact) and XII (Tongue protrudes to midline) Motor Strength: Normal Lower Extremities and Normal Upper Extremities; negative Pronator Drift Motor Tone: Normal Lower Extremities and Normal Upper Extremities Muscle Bulk/Involuntary Movements: No Involuntary Movements; negative Muscle Atrophy Sensation: Light Touch Intact, Pain/Temperature Intact, Vibration Intact and Proprioception Intact Coordination: Normal; negative Limited Balance, Dysdiadochokinesia, Finger-Nose Abnormal and Heel-Bustos Abnormal Deep Tendon Reflexes: Rt Triceps: 2+, Lt Triceps: 2+, Rt Biceps: 2+, Lt Biceps: 2+, Rt Brachioradialis: 2+, Lt Brachioradialis: 2+, Rt Patellar: 2+, Lt Patellar: 2+, Rt Ankle: 2+ and Lt Ankle: 2+ Special Tests: negative Babinski Present Gait: Normal Station a nd Gait Results & Data ([facility]) Vital Signs (Past 12 Hours) Vital Signs Temp Pulse Pulse Resp BP Pulse Ox 06/03/20 08:17 36.8 C 91 H 18 179/84 H 97 06/03/20 00:16 36.5 C 73 18 135/85 95 06/02/20 23:55 92 H Laboratory Results WBC 13.09, hemoglobin 9.8, hematocrit 28.6, platelet count 22, sodium 139, potassium 4.1, BUN 15, creatinine 1.14, glucose 131, AST 39, ALT 67, triglycerides 117, cholesterol 157, LDL 99, VLDL 23, HDL 35, vitamin B12 279, folate 6.[address] angiography of the head and neck negative for aneurysm, dissection, high- grade stenosis, or occlusion. CT of the head negative for hemorrhage or acute process. Brain MRI negative for acute or subacute stroke. There is a 3 cm arachnoid cyst along the quadrigeminal plate cistern. A repeat CT of the head d one on June 01 was also negative for hemorrhage or acute process. I reviewed the images as well as the radiologist interpretation of these tests. An electrocardiogram revealed a normal sinus rhythm, 68 bpm. An echocardiogram reveals normal left ventricular size and function, ejection fraction 65 to 70%. Right ventricle was dilated with normal function. Both the left and right atria are of normal size. Coding Level of Care Code 21790 Inpt Consult Level 5 Diagnoses TIA (transient ischemic attack) G45.9 Thrombocytopenia D69.6
--- NOTE | 2020-06-03 11:03 | Hospitalist Progress Note ---
Date of Service June 03, 2020 Assessment & Plan (1) TIA (transient ischemic attack): Faizan Monroy is a 49y/o M with PRIYA who presented to the ED on 05/31 with transient neurologic symptoms that resolved spontaneously in ED, with one repeat episode on 06/01 lasting 40 minutes. Found on workup to have thrombocytopenia that has responded to steroid administration. 1. Transient neurologic symptoms, thrombocytopenia: -CTA head/neck: no acute abnormality -MRI brain: no acute intracranial abnormality -Head CTA without contrast on 06/01 during symptomatic episode: negative for acute hemorrhage -Lipid profile wnl, A1c 4.8% -Per neurology consult, further IVIG treatment not indicated -Peripheral smear suggests against, but does not rule out, TTP; f/u [id number] activity assay 2. Thrombocytopenia: improving with high-dose dexamethasone administration. Platelets up to 22 today. -Continue dexamethasone 40mg daily 3. Hypertension: labile during current visit; highest SBP 179. Has been declining his PRN hydralazine when offered. -f/u outpatient (2) Thrombocytopenia: (3) Stroke-like symptoms: Subjective Patient feels well today with no complaints. He has been ambulating around the unit without issue. Nursing reports no overnight events. Nursing reports patient's last BP was 179/84 but that patient declined hydralazine. Patient reports he declined hydralazine because he feels well and believes his increased BP is due to his inability to tolerate the hospital's CPAP machine. Patient denies recurrence of his neurologic symptoms including facial weakness, extremity weakness, numbness, tingling, slurred speech, or word-finding difficulty. Review of Systems Constitutional: no fever, no chills, no sweats and no fatigue Respiratory: no cough, no chest congestion, no dyspnea and no wheezing Cardiovascular: no chest pain, no palpitations, no syncope and no edema Gastrointestinal: no abdominal pain, no nausea, no vomiting and no constipation Physical Exam Constitutional: no acute distress and not ill appearing AO x 4 Respiratory: normal respiratory effort, lungs clear to auscultation Auscultation: no crackles, no rhonchi and no wheezes Cardiovascular: RRR, no murmur, no edema Heart Sounds: normal S1 and normal S2 Gastrointestinal (Abdomen): normal bowel sounds, soft, nontender, no hepatosplenomegaly Percussion/Palpation: abdomen soft; abdomen nontender, no guarding and abdomen not rigid Results & Data Results & Data ([facility]) Vital Signs (Past 12 Hours) Vital Signs Temp Pulse Pulse Resp BP Pulse Ox 06/03/20 08:17 36.8 C 91 H 18 179/84 H 97 06/03/20 00:16 36.5 C 73 18 135/85 95 06/02/20 23:55 92 H
--- NOTE | 2020-06-03 15:49 | Discharge Summary ---
Date of Service June 03, 2020 Admission HPI Per Admitting Provider Faizan Monroy is a 49y/o M w/ PMH reviewed for obstructive sleep apnea; to the emergency department following concern for recurrence of right arm/hand weakness numbness and tingling, with new onset facial numbness tingling and slurring of speech. This resolved prior to mission, and has not recurred. Patient did not receive TPA, following the discovery of low platelets on CBC. Over the last several days patient has noticed bruising of his left ankle, but does not remember any trauma to his left ankle or other injuries. Denies fever, shortness of breath, easy bleeding, chest pain, nausea, vomiting, abdominal naveed n, changes to urination, changes to bowel movements. Social: Denies tobacco, admits to 1-2 drinks every 2 to 3 months, denies recreational or illicit drug use Family: Denies history of lung cancer, Admission Exam Per Admitting Provider Constitutional: WD/WN, vitals as above Eyes: PERRL, conjunctivae normal, anicteric sclerae Respiratory: normal respiratory effort, lungs clear to auscultation Cardiovascular: Rate/Rhythm: regular rate and regular rhythm Heart Sounds: normal S1 and normal S2; no gallop, no murmur and no cardiac rub Vessels: no JVD Extremities: no pedal edema Gastrointestinal (Abdomen): normal bowel sounds, soft, nontender, no hepatosplenomegaly Musculoskeletal: no cyanosis or clubbing, extremities motor strength 5/5 Skin: no rashes, warm and dry Neurologic: patellar DTR's 2+ bilat, sensation intact CN's II-XI intact bilaterally Psychiatric: A+Ox3, euthymic affect 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 Discharge Exam Constitutional well developed and well nourished; no acute distress AO x 4 Respiratory normal respiratory effort, lungs clear to auscultation Auscultation: lungs clear to auscultation bilaterally; no crackles, no rhonchi and no wheezes Cardiovascular Rate/Rhythm: regular rate and regular rhythm Heart Sounds: normal S1 and normal S2; no murmur Gastrointestinal (Abdomen) Inspection/Auscultation: normal bowel sounds Percussion/Palpation: abdomen soft; abdomen nontender, no guarding and abdomen not rigid Neurologic PERRL, EOMI, accommodation nl, no face palsy, no dysarthria awake; no focal motor deficits and not confused Speech / Cognition: no expressive aphasia Motor/Sensory: no tremor Discharge Data Allergies Allergy/AdvReac Type Severity Reaction Status Date / Time No Known Allergies Allergy Unknown Verified 05/31/20 06:39 Consultations 05/31/20 07:19 ED Decision to Admit Stat 05/31/20 09:38 Consult Hematology Routine 06/02/20 20:04 Consult Neurology Routine Ordered Studies 05/31/20 06:12 CT angio head wo/w Stat CT angio neck with con Stat 05/31/20 12:14 MR brain wo/w con Routine 06/01/20 11:58 CT head/brain wo con Stat Hospital Course (1) Thrombocytopenia: Mr. 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 To Do As Outpatient: 1. Repeat CBC every / until Oncology Followup 2. Complete 2 additional days of dexamethasone 3. Followup within 1 month with Oncology Stroke-Like Symptoms Patient presented to the ED with right-sided facial weakness, right-sided arm weakness, numbness, and tingling, as well as slurred speech and word-finding difficulty, and was admitted. Symptoms had resolved by time of physical exam in the emergency department. CT head and MRI brain revealed no acute bleed or thromboemolism. On 06/01, patient experienced a repeat episode of his symptoms which lasted approximately 40 minutes. A CTA head/neck performed during this episode revealed no acute bleed. Patient did not experience a recurrence of these symptoms for the remainder of his hospital stay. Neurology was consulted. Based on patients presentation, concurrent thrombocytopenia, and clinical course his symptoms were thought to be due to ITP vs TTP. Evaluation as below was most suspicious for ITP, and he was treated with steroids as below. HgbA1C was 4.8% and lipid profile was normal without indication for statin therapy. Initiation of a statin or antiplatelet agent was not indicated based on profile and suspected ITP. 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 He was empirically treated with IVIG and started on a four-day course of high-dose oral dexamethasone (40mg per day) per neurology recommendations. Initial peripheral smear revealed rare schistocytes, and further workup for microangiopathic hemolytic anemia, including LDH, haptoglobin, and reticulocyte count was performed; results were thought to be consistent with ITP rather than TTP. An [id number] assay was drawn, with results still pending. His platelets responded favorably to high-dose oral dexamethasone, which were found to be 22 on 06/03. After consulting with Dr. Jesus from oncology, patient was cleared for discharge with instructions to complete his four-day course of high-dose oral dexamethasone at home, with o rders to get a CBC with diff done every Wednesday and until his follow-up appointment with Dr. Jesus within the next 2-3 weeks. (2) Stroke-like symptoms: Total Time Total Time Spent Total Time Spent (In Minutes): See attending documentation Discharge Plan Discharge Items Patient Disposition: Home - Self-Care Reason For Visit: STROKE-LIKE SYMPTOMS Discharge Diagnosis: Transient neurologic deficit 2/2 suspected ITP Condition on Discharge: Good Activity: Resume your previous activity Non-emergency contact: Primary Care Provider and Oncologist Call non-emergency contact if: you have any medication questions, your symptoms worsen and you have a fever Follow-up/Referrals: Kg Nielsen MD [Primary Care Provider] - Diet: Regular Addtl Attending Provider Instructions: You were admitted for stroke-like symptoms. Imaging of your head, neck, and brain did not find evidence of a stroke. Your laboratory work-up was suggestive of an illness called ITP. This is a disease that affects your blood. Please call the above number to schedule an appointment with Dr. Jesus within the next 2-3 weeks. You will need bloodwork done every Wednesday and until your follow-up appointment with Dr. Jesus. You were prescribed a new medicine, dexamethasone, during your visit. You will continue taking this medicine for two more days. This medicine is dispensed in 4mg tablets. You will take ten (10) tablets per day for the next two days. This is a total of 40mg per day for the next two days. This prescription has been sent to the [facility] on [facility] in [place]. You will need bloodwork as noted above. You will need to have a CBC (blood count) performed every Wednesday and until your follow-up appointment with Dr. Jesus, Oncology. You have been provided 6 prescriptions for this bloodwork. Please bring a script to any lab to have your blood drawn on these days, and have the results forwarded to Dr. Jesus. If you run out of prescriptions, and have not had an appointment with Oncology, please call their office or your primary care physician for further instructions. Please call your primary care physician with any stroke-like symptoms including facial weakness, arm or leg weakness, numbness, tingling, slurred speech or difficulty speaking. Please also call your primary care physician if you have chest pain, shortness of breath, a fever over 101, or any bleeding. If you feel you need urgent medical care, please call 911 immediately. Pending Studies at Discharge: Yes Studies:: [id number] assay result Stand-Alone Forms: [facility], Smoking Cessation Medications and DC Order Prescriptions: New dexamethasone 4 mg Tablet 40 mg PO DAILY 2 Days Qty: 20 RF: 0 No Action No Known Home Medications RF: 0 Discharge Orders: Discharge Order (Routine); Ordered 06/03/20 Ordered By: Dev French Admission Data Admit Date/Time: 05/31/20 08:46 Attending Provider: Armen Santiago Admit Provider: Jun Stone Primary Care Provider: Kg Nielsen Other Providers: Laurie Tellez ; Rudolph Jesus V. ; Sunil Cartwright. Other Interventions: Discharge Summary Assessment (RN) Last Done: 06/03/20 16:30 DC Date/Time DO NOT enter until pt leaves facility: 06/03/20 16:47 Supervising Physician Co-Signing Physician Notes I also saw the patient confirmed iqbal portions of the history and physical examination. I agree with the impression and plan as noted above. Reviewed the discharge plan with the patient, and he is aware of the need for follow-up blood work. He would not be able to return to work until cleared by his primary care physician. Reviewing the literature, there is limited anecdotal reports of ITP subsequent to COVID-19 infection. We did discuss this theoretical possibility with the patient. He really had limited other symptoms to suggest a COVID infection - some GI symptoms but no upper respiratory symptoms. PCR testing at this point would not change treatment and in theory could be harmful should he develop epistaxis secondary to testing. Serum antibody testing could be added to his follow-up CBCs, but this may be more academic and clinically useful. Resident Activity Tracking Resident Involvement: Resident Care Provided Care Provided: [facility]
[2020-06-04 17:33] LABS: Albumin 3.6 g/dL (3.8-4.8); Alpha 1 Globulin 0.3 g/dL (0.2-0.3); Alpha 2 Globulin 0.4 g/dL (0.5-0.9); Beta-1-Globulin 0.4 g/dL (0.4-0.6); Beta-2-Globulin 0.3 g/dL (0.2-0.5); Gamma Globulin 2.4 g/dL (0.8-1.7); Monoclonal Protein Band 1 DNR g/dL (NONE DETECTED); Monoclonal Protein Band 2 DNR g/dL (NONE DETECTED); Monoclonal Protein Band 3 DNR g/dL (NONE DETECTED); Total Protein 7.4 g/dL (6.1-8.1)
[2020-06-05 20:14] LABS: Albumin 3.8 g/dL (3.8-4.8); Alpha 1 Globulin 0.3 g/dL (0.2-0.3); Alpha 2 Globulin 0.4 g/dL (0.5-0.9); Beta-1-Globulin 0.5 g/dL (0.4-0.6); Beta-2-Globulin 0.4 g/dL (0.2-0.5); Monoclonal Protein Band 2 DNR g/dL (NONE DETECTED); Monoclonal Protein Band 3 DNR g/dL (NONE DETECTED); Total Protein 6.3 g/dL (6.1-8.1)
== END 2020-06-03 16:47 | disposition home or self-care (01) | DRG 813 ==
LOC: ED 05:47 → INTOOBSV 08:46 → 2S 08:46 → SUATTDRO 08:46 → 2S 09:07